=== PATIENT | male | born 1965 | race Caucasian/White ===

== ENCOUNTER 2023-04-05 17:02 | Emergency (ER) | payer BC, SELFPAY ==
[2023-04-05 17:19] VITALS: BP 121/67; PULSE 74; RESP 16; TEMP 37.1
--- NOTE | 2023-04-05 17:49 | ED.EAR ---
HPI - Ear Problem General Chief complaint: Ear Stated complaint: Left Ear Pain Time Seen by Provider: 04/05/23 17:50 Source: patient Mode of arrival: ambulatory Limitations: no limitations History of Present Illness HPI Narrative: 57-year-old male presented for complaint of left ear pressure for few days. Endorses decreased hearing. Denies tinnitus, dizziness, nausea, vomiting, fevers or chills. Uses Q-tips. No treatment prior to arrival. MD Complaint: ear pain Related Data Home Medications Medication Instructions Recorded Confirmed Cymbalta 04/05/23 albuterol sulfate 90 mcg/actuation inhalation 04/05/23 aerosol inhaler Allergies Allergy/AdvReac Type Severity Reaction Status Date / Time No Known Allergies Allergy Verified 04/05/23 17:18 Review of Systems Review of Systems: CONSTITUTIONAL: Denies malaise, chills, or fever. EYES: Denies visual changes, redness, or discharge. ENT: Denies sinus pain, and sore throat. Reports ear pain , rhinorrhea CARDIOVASCULAR: Denies chest pain, palpitations, or edema. RESPIRATORY: Denies cough or dyspnea. GASTROINTESTINAL: Denies abdominal pain, nausea, vomiting, diarrhea SKIN: Denies rash or itching. MUSCULOSKELETAL: Denies myalgia. NEUROLOGIC: Denies headache. All systems reviewed & are unremarkable except as noted in HPI and below PMFSH Comments At time of signature, agree with nursing past medical, surgical, social and family history. There is no relevant family history pertinent to the presenting complaint Exam Narrative: GENERAL: Well-appearing EYES: PERRLA, conjunctivae clear ENT: Nares clear. Mucous membranes moist. Right TM pearly inman with dull light reflex; left canal with small amount dried cerumen, TM erythematous, bulging and intact, canal mildly erythematous No drainage no tragal tenderness. Oropharynx not erythematous without lesions. CHEST: Clear to auscultation, breath sounds equal. HEART: Regular rate and rhythm. No murmur heard. SKIN: Warm, dry, no rash. NEURO: Alert and oriented x3. PSYCH: Normal mood and affect Course Course Emergency Course: Patient is aware of diagnosis, understands and agrees to treatment plan. Anticipatory guidance given. Patient agrees to follow-up as directed and is aware of reasons to seek care at the emergency department. Portions of this record may have been created with voice recognition software Level of Care: Express Care Visit Vital Signs Vital signs: Vital Signs Temperature 98.8 F 04/05/23 17:19 Pulse Rate 74 04/05/23 17:19 Respiratory Rate 16 04/05/23 17:19 Blood Pressure 121/67 04/05/23 17:19 Temperature 98.8 F 04/05/23 17:19 Pulse Rate 74 04/05/23 17:19 Respiratory Rate 16 04/05/23 17:19 Blood Pressure 121/67 04/05/23 17:19 Reviewed Procedures Ear Wax Removal Left Ear: Results: Re-examined: some cerumen remains Patient Tolerated Procedure: well and no complications Complications: no problems Technique: ear canal curetted Additional Comments: small amount of cerumen removed from the left canal, small amount cerumen remains. Medical Decision Making MDM Narrative Medical decision making narrative: discussed physical exam findings consistent with left AOM. Advised supportive measures and signs/symptoms to go to the ER. Patient is appropriate for outpatient treatment and follow-up. Differential Diagnosis Differential Diagnosis: Coronavirus, strep pharyngitis, allergic rhinitis, upper respiratory tract infection, sinusitis, rhinosinusitis, nasopharyngitis, viral pharyngitis, otitis media, otitis externa, eustachian tube dysfunction, foreign body, cerumen impaction. Vital Signs Vital Signs: Vital Signs Temperature 98.8 F 04/05/23 17:19 Pulse Rate 74 04/05/23 17:19 Respiratory Rate 16 04/05/23 17:19 Blood Pressure 121/67 04/05/23 17:19 Temperature 98.8 F 04/05/23 17:19 Pulse Rate 74 0
== END 2023-04-05 18:06 | disposition home or self-care (01) ==
PROVIDERS: Emergency Provider Nurse Practitioner Family; PCP Family Medicine
DX: H66.92 Otitis media, unspecified, left ear (principal); H61.22 Impacted cerumen, left ear; J44.9 Chronic obstructive pulmonary disease, unspecified
CPT/HCPCS: 69210; 99213; G0463

== ENCOUNTER 2023-10-15 18:46 | Emergency (ER) | payer BC, SELFPAY ==
[2023-10-15 18:50] VITALS: BP 139/76; PULSE 71; RESP 20; TEMP 37.1; O2SAT 100
--- NOTE | 2023-10-15 19:07 | ED.EAR ---
HPI - Ear Problem General Chief complaint: Ear Stated complaint: ears History of Present Illness HPI Narrative: Patient presents with right ear pain. No drainage from the ear Related Data Allergies Allergy/AdvReac Type Severity Reaction Status Date / Time No Known Allergies Allergy Verified 10/15/23 19:04 Review of Systems Review of Systems: CONSTITUTIONAL: Denies fever, chills, or sweats. EYES: Denies visual changes, redness, or discharge. ENT: Denies rhinorrhea, congestion, sore throat, or otalgia. CARDIOVASCULAR: Denies chest pain, palpitations, or edema. RESPIRATORY: Denies cough or dyspnea. GASTROINTESTINAL: Denies abdominal pain, nausea, vomiting, or diarrhea. GENITOURINARY: Denies dysuria or hematuria. SKIN: Denies rash or itching. MUSCULOSKELETAL: Denies back pain, joint pain, or myalgia. NEUROLOGIC: Denies headache, numbness, or weakness. PSYCHIATRIC: Denies anxiety or depression. PMFSH Comments At time of signature, agree with nursing past medical, surgical, social and family history. There is no relevant family history pertinent to the presenting complaint Exam Narrative: GENERAL: Well-appearing, well-nourished, and in no acute distress. HEAD: Normocephalic, atraumatic. EYES: PERRLA and EOMI. ENT: Nares clear, no rhinorrhea or epistaxis. Mucous membranes moist. Right ear moderate erythema to canal TM dull NECK: Supple. CHEST: Clear to auscultation. No respiratory distress. HEART: Regular rate and rhythm. No murmur heard. Normal peripheral pulses. ABDOMEN: Soft, nontender, nondistended, normal active bowel sounds. EXTREMITIES: Normal range of motion. No edema. SKIN: Warm, dry, no rash. NEURO: No focal deficits. Alert and oriented x3. [place] Coma Scale Eye Opening: Spontaneous 4 [place] Coma Scale Motor: Obeys Commands 6 [place] Coma Scale Verbal: Oriented 5 [place] Coma Scale Total 15 Course Course Level of Care: Express Care Visit Vital Signs Vital signs: Vital Signs Temperature 37.1 C 10/15/23 18:50 Pulse Rate 71 10/15/23 18:50 Respiratory Rate 10/15/23 18:50 Blood Pressure 139/76 10/15/23 18:50 Pulse Oximetry 100 10/15/23 18:50 Oxygen Delivery Room Air 10/15/23 18:50 Temperature 37.1 C 10/15/23 18:50 Pulse Rate 71 10/15/23 18:50 Respiratory Rate 20 10/15/23 18:50 Blood Pressure 139/76 10/15/23 18:50 Pulse Oximetry 100 10/15/23 18:50 Oxygen Delivery Room Air 10/15/23 18:50 Please ADONIS schedule a followup visit with your personal physician for further evaluation and treatment. Including recheck and discussion of your blood pressure. If your symptoms persist, change or worsen significantly before you can contact your personal physician then please, without delay, go to the emergency department for further evaluation Medical Decision Making Vital Signs Vital Signs: Vital Signs Temperature 37.1 C 10/15/23 18:50 Pulse Rate 71 10/15/23 18:50 Respiratory Rate 20 10/15/23 18:50 Blood Pressure 139/76 10/15/23 18:50 Pulse Oximetry 100 10/15/23 18:50 Oxygen Delivery Room Air 10/15/23 18:50 Temperature 37.1 C 10/15/23 18:50 Pulse Rate 71 10/15/23 18:50 Respiratory Rate 20 10/15/23 18:50 Blood Pressure 139/76 10/15/23 18:50 Pulse Oximetry 100 10/15/23 18:50 Oxygen Delivery Room Air 10/15/23 18:50 Discharge Plan Discharge Clinical Impression: Otitis media Patient Disposition: Home, Self-Care Condition: Stable Instructions: Antibiotic Form Additional Instructions: Medication as prescribed to with food until gone Tylenol and or ibuprofen as needed for pain or discomfort Follow-up with primary care provider as needed If any new or worsening symptoms please go to ER immediately further evaluation treatment Prescriptions: New amoxicillin-pot clavulanate 875-125 mg tablet 1 tablet PO Q12H 7 Days Qty: 14 0RF ciprofloxacin HCl 0.2 % dropperette 5 drp RIGHT EAR
== END 2023-10-15 19:12 | disposition home or self-care (01) ==
PROVIDERS: Emergency Provider Nurse Practitioner Family; PCP Family Medicine
DX: H66.91 Otitis media, unspecified, right ear (principal)
CPT/HCPCS: 99213; G0463

== ENCOUNTER 2024-06-20 17:14 | Emergency (ER) | payer BC, SELFPAY ==
--- OUTSIDE RECORDS SUMMARY | 2024-06-20 17:16 | XMS_ITS | Encounter Summary ---
Author Organization [facility] Healthcare Address [address] [place] [address] Care Team Providers Care Printer Repair Technician Name Role Phone Eduard Zamudio MD Primary Care Provider [phone] Encounter Details Date Type Department Care Team (Late Contact Info) Description 04/27/2024 Results Follow-Up [place] Director Of Content And Programming at [address] [id number] Isabel Rutherford MA Social History Tobacco Use Types Packs/Day Years Used Date Smoking Tobacco: Every Day Smokeless Tobacco: Never Personal Safety Answer Date Recorded Have you ever been in or are you currently in a harmful physical or emotional relationship or is someone making you feel afraid or unsafe? Denies 03/03/2024 Sex and Gender Information Value Date Recorded Sex Assigned at Not on file Legal Sex Male 3:24 PM CDT Gender Identity Not on file Sexual Orientation Not on file documented as of this encounter Plan of Treatment Not on file documented as of this encounter Visit Diagnoses Not on filedocumented in this encounter Care Teams Printer Repair Technician Relationship Specialty Start Date End Date Eduard Zamudio MD [address] [place] [address] [address] [facility] [address] [place] [address] PCP - General 08/05/21 documented as of this encounter
--- OUTSIDE RECORDS SUMMARY | 2024-06-20 17:16 | XMS_ITS | Referral Summary ---
Author Organization [facility] Address [address] [place] [id number] Care Team Providers Care Family Protection Specialist Name Role Phone Eduard Zamudio MD Primary Care Provider [phone] Encounters Date Type Department Care Team Description 04/27/2024 Results Follow-Up [facility] at [address] [id number] Isabel Rutherford MA 04/03/2024 6:33 AM MECHANICAL MAINTENANCE TECHNICIAN - 04/03/2024 11:59 PM MECHANICAL MAINTENANCE TECHNICIAN Hospital Encounter [facility] Cardiology [address] [place] [id number] Paroxysmal SVT (supraventricular tachycardia) Discharge Disposition: Discharge to home or self care 04/03/2024 6:33 AM MECHANICAL MAINTENANCE TECHNICIAN - 04/03/2024 11:59 PM MECHANICAL MAINTENANCE TECHNICIAN Hospital Encounter [facility] Cardiology [address] [place] [id number] Paroxysmal SVT (supraventricular tachycardia) Discharge Disposition: Discharge to home or self care 03/27/2024 6:32 AM MECHANICAL MAINTENANCE TECHNICIAN - 03/27/2024 11:59 PM MECHANICAL MAINTENANCE TECHNICIAN Hospital Encounter [facility] [address] [place] [phone] Discharge Disposition: Discharge to home or self care 03/27/2024 6:32 AM MECHANICAL MAINTENANCE TECHNICIAN - 03/27/2024 11:59 PM MECHANICAL MAINTENANCE TECHNICIAN Hospital Encounter [facility] Cardiology [address] [place] [phone] Paroxysmal SVT (supraventricular tachycardia) Discharge Disposition: Discharge to home or self care 03/27/2024 6:32 AM MECHANICAL MAINTENANCE TECHNICIAN - 03/27/2024 11:59 PM MECHANICAL MAINTENANCE TECHNICIAN Hospital Encounter [facility] [address] [place] [address] Discharge Disposition: Discharge to home or self care 03/27/2024 6:32 AM MECHANICAL MAINTENANCE TECHNICIAN - 03/27/2024 11:59 PM MECHANICAL MAINTENANCE TECHNICIAN Hospital Encounter [address] [address] Paroxysmal SVT (supraventricular tachycardia) Discharge Disposition: Discharge to home or self care from Last 3 Months Allergies Active Allergy Reactions Criticality Noted Date Comments Iodine Anaphylaxis High 03/03/2024 Shellfish Containing Products Anaphylaxis High 03/03 Medications albuterol HFA (PROVENTIL HFA,VENTOLIN HFA,PROAIR HFA) 90 mcg/actuation inhaler INHALE 1 TO 2 PUFFS BY MOUTH EVERY 4 HOURS NEEDED FOR SHORTNESS OF BREATH 2 Active Symbicort 160-4.5 mcg/actuation inhaler Inhale 2 puffs 2 (two) times a day 2 Active ergocalciferol (VITAMIN D) 50,000 unit capsule Take 1 capsule (50,000 Units total) by mouth 2 Active meloxicam (MOBIC) 15 mg tablet TAKE 1 TABLET BY MOUTH EVERY DAY WITH MEALS 2 Active methylPREDNISol one (MEDROL DOSEPACK) 4 mg Dosepack 2 Active meclizine (ANTIVERT) 25 mg tabletIndicatio ns:Vertigo Take 2 tablets (50 mg total) by mouth 3 (three) times a day as needed for dizziness 30 tablet 2 Active dilTIAZem XR (CARDIZEM CD,DILACOR XR) 180 mg 24 hr capsule Take 1 capsule (180 mg total) by mouth daily 30 capsule 11 5 03/06/19 26 Active Active Problems No known active problems Immunizations Immunization Administration Dates Next Due Influenza, Quadrivalent, Spl it, Preservative Free, Intramuscular 11/23/2019 Influenza, Trivalent, IM (MDV) 11/30/2020 Social History Tobacco Use Types Packs/Day Years Used Date Smoking Tobacco: Every Day Smokeless Tobacco: Never Tobacco Cessation:Ready to Q uit: Not Asked; Counseling Given: Not Answered Personal Safety Answer Date Recorded Have you ever been in or are you currently in a harmful physical or emotional relationship or is someone making you feel afraid or unsafe? Denies 03/03/2024 Sex and Gender Information Value Date Recorded Sex Assigned at Not on file Legal Sex Male 3:24 PM CDT Gender Identity Not on file Sexual Orientation Not on file Last Filed Vital Signs Vital Sign Reading Time Taken Comments Blood Pressure 137/90 03/06/2024 11:55 AM MECHANICAL MAINTENANCE TECHNICIAN Pulse 76 03/06/2024 11:55 AM MECHANICAL MAINTENANCE TECHNICIAN Temperature 36.3 C (97.4 F) 03/03/2024 6:34 PM MECHANICAL MAINTENANCE TECHNICIAN Respiratory Rate 17 03/03/2024 6:50 PM MECHANICAL MAINTENANCE TECHNICIAN Oxygen Saturation 97% 03/03/2024 6:50 PM MECHANICAL MAINTENANCE TECHNICIAN Inhaled Oxygen Concentration - - Weight 113.4 kg (250 lb) 04/03/2024 7:06 AM MECHANICAL MAINTENANCE TECHNICIAN Height 180.3 cm (5' 11 ) 04/03/2024 7:06 AM MECHANICAL MAINTENANCE TECHNICIAN Body Mass Index 34.87 04/03/2024 7:06 AM MECHANICAL MAINTENANCE TECHNICIAN Plan of Treatment Not on file Procedures Procedure Name Priority Date/Time Associated Diagnosis Comments TRANSTHORACIC ECHO (TTE) COMPLETE W DOPPLER/CF WO CONTRAST Routine 04/03/2024 7:26 AM MECHANICAL MAINTENANCE TECHNICIAN Paroxysmal SVT (supraventricular tachycardia) MCT - MOBILE CARDIAC TELEMETRY EVENT MONITOR Routine 04/03/2024 6:34 AM MECHANICAL MAINTENANCE TECHNICIAN Paroxysmal SVT (supraventricular tachycardia) STRESS TEST FOR DUAL READ Schedule Routine, Read Routine (OP Routine) 03/27/2024 9:01 AM MECHANICAL MAINTENANCE TECHNICIAN Paroxysmal SVT (supraventricular tachycardia) NM MPI SPECT (REST AND/OR STRESS) MULTIPLE STUDIES Schedule Routine, Read Routine (OP Routine) 03/27/2024 9:01 AM MECHANICAL MAINTENANCE TECHNICIAN Paroxysmal SVT (supraventricular tachycardia) from Last 3 Months Results * TRANSTHORACIC ECHO (TTE) COMPLETE W DOPPLER/CF WO CONTRAST (04/03/2024 7:26 AM MECHANICAL MAINTENANCE TECHNICIAN) LV EF % CONS SCIMAGE Anatomical Region Laterality Modality Ultrasound 04/03/2024 7:10 AM MECHANICAL MAINTENANCE TECHNICIAN Narrative 04/03/2024 8:11 AM MECHANICAL MAINTENANCE TECHNICIAN [address] [place] [address] Echocardiogram Report Patient Name: MALCOLM LILLY : 1965 Study Date: 04/03/2024 7:10:03 AM Gender: M Tech: S[employer] WORKER [employer] ESC[employer] Location: Echo Lab 2 Ref Provider: KATIA NUNEZ Height(Cm): 180 BSA: 2.38 Weight(Kg): 113.4 Quality: Adequate Order Provider: KATIA NUNEZ PROCEDURES: Echocardiographic Report: Transthoracic echocardiogram with complete 2D, M-Mode, and color Doppler examination. INDICATIONS: Atrial Fibrillation and I47.10 Supraventricular tachycardia, unspecified. MEASUREMENTS: 2D/MM Value Range Doppler Value Range EF Teich MM 71.0 % [ 52.0 - 72.0 ] MARCELA Vmax 3.06 cm2 EF Mod BP 71 % [ 52 - 72 ] AV Mean PG 4 mmHg LVIDd MM 4.40 cm [ 4.20 - 5.80 ] AV Peak Ted 1.31 m/s [ 1.00 - 1.70 ] LVIDs MM 2.70 cm [ 2.50 - 4.00 ] AV VTI 28.21 cm LVPWd MM 1.20 cm [ 0.60 - 1.00 ] LVOT Diam 2.31 cm IVSd MM 1.20 cm [ 0.60 - 1.00 ] LVOT Peak Ted 0.95 m/s [ 0.70 - 1.10 ] LA Dimension MM 3.10 cm [ 3.00 - 4.00 ] LVOT VTI 22.37 cm AoR Diam MM 2.85 cm [ 3.10 - 3.70 ] MV E Peak Ted 0.89 m/s [ 0.60 - 1.30 ] ACS MM 1.84 cm [ 1.50 - 2.60 ] MV A Peak Ted 0.80 m/s [ 1.00 - 1.20 ] MV Mean PG 2 mmHg MV PHT 41 msec [ 20 - 100 ] MVA 5.40 MV Decel Time 175 msec [ 104 - 258 ] TR Peak Ted 2.29 m/s [ 1.00 - 2.80 ] TR Peak PG 21 mmHg RVSP 26.00 mmHg [ 10.00 - 36.00 ] E` 0.07 m/s E/E` 12.05 [ <= 10.00 ] PA Pressure 26.00 mmHg [ 10.00 - 36.00 ] 2D/MM Value Range Doppler Value Range - FINDINGS: Atrial Septum: Normal atrial septum. Left Ventricle: Impaired diastolic relaxation Grade I. Ejection fraction is measured at 71 %. Left Atrium: The left atrium is normal in size. Right Ventricle: Normal right ventricular size. Normal right ventricular systolic function. Right Atrium: The right atrium is normal in size. Aortic Valve: Normal structure of the aortic valve. Mitral Valve: Normal structure of the mitral valve. Pulmonic Valve: Normal structure of the pulmonic valve. Tricuspid Valve: Estimated peak RVSP is 26 mmHg. Mild tricuspid regurgitation. Pericardium: Normal pericardium with no significant pericardial effusion. Aorta: Normal aortic root. Sinus of Valsalva is normal. Aortic arch is normal. Descending aorta is normal. IVC: Normal size and normal respiratory collapse consistent with normal right atrial pressure (<5 mmHg). Pulmonary Artery: Normal pulmonary artery size. CONCLUSIONS: Impaired diastolic relaxation Grade I. Ejection fraction is measured at 71 %. Estimated peak RVSP is 26 mmHg. Mild tricuspid regurgitation. Electronically Signed By: Livan Farrell MD 04/03/2024 8:10:53 AM MECHANICAL MAINTENANCE TECHNICIAN Procedure Note Alyce Farrell MD - 04/03/[address] [place] [address] Echocardiogram Report Patient Name: MALCOLM LILLY : 1965 Study Date: 04/03/2024 7:10:03 AM Gender: M Tech: KERLINE Location: Echo Lab 2 Ref Provider: KATIA NUNEZ Height(Cm): 180 BSA: 2.38 Weight(Kg): 113.4 Quality: Adequate Order Provider: KATIA NUNEZ PROCEDURES: Echocardiographic Report: Transthoracic echocardiogram with complete 2D, M-Mode, and color Dopplerexamination. INDICATIONS: Atrial Fibrillation and I47.10 Supraventricular tachycardia,unspecified. MEASUREMENTS: 2D/MM Value Range Doppler ValueRange EF Teich MM 71.0 % [ 52.0 - 72.0 ] MARCELA Vmax 3.06cm2 EF Mod BP 71 % [ 52 - 72 ] AV Mean PG 4 mmHg LVIDd MM 4.40 cm [ 4.20 - 5.80 ] AV Peak Ted 1.31 m/s[ 1.00 - 1.70 ] LVIDs MM 2.70 cm [ 2.50 - 4.00 ] AV VTI 28.21cm LVPWd MM 1.20 cm [ 0.60 - 1.00 ] LVOT Diam 2.31cm IVSd MM 1.20 cm [ 0.60 - 1.00 ] LVOT Peak Ted 0.95 m/s[ 0.70 - 1.10 ] LA Dimension MM 3.10 cm [ 3.00 - 4.00 ] LVOT VTI 22.37cm AoR Diam MM 2.85 cm [ 3.10 - 3.70 ] MV E Peak Ted 0.89 m/s[ 0.60 - 1.30 ] ACS MM 1.84 cm [ 1.50 - 2.60 ] MV A Peak Ted 0.80 m/s[ 1.00 - 1.20 ] MV Mean PG 2 mmHg MV PHT 41 msec [ 20 - 100 ] MVA 5.40 MV Decel Time 175 msec [ 104 - 258 ] TR Peak Ted 2.29 m/s [ 1.00 - 2.80 ] TR Peak PG 21 mmHg RVSP 26.00 mmHg [ 10.00 - 36.00 ] E` 0.07 m/s E/E` 12.05 [ <= 10.00 ] PA Pressure 26.00 mmHg [ 10.00 - 36.00 ] 2D/MM Value Range Doppler ValueRange - FINDINGS: Atrial Septum: Normal atrial septum. Left Ventricle: Impaired diastolic relaxation Grade I. Ejection fraction is measured at 71%. Left Atrium: The left atrium is normal in size. Right Ventricle: Normal right ventricular size. Normal right ventricular systolicfunction. Right Atrium: The right atrium is normal in size. Aortic Valve: Normal structure of the aortic valve. Mitral Valve: Normal structure of the mitral valve. Pulmonic Valve: Normal structure of the pulmonic valve. Tricuspid Valve: Estimated peak RVSP is 26 mmHg. Mild tricuspid regurgitation. Pericardium: Normal pericardium with no significant pericardial effusion. Aorta: Normal aortic root. Sinus of Valsalva is normal. Aortic arch is normal.Descending aorta is normal. IVC: Normal size and normal respiratory collapse consistent with normal rightatrial pressure (<5 mmHg). Pulmonary Artery: Normal pulmonary artery size. CONCLUSIONS: Impaired diastolic relaxation Grade I. Ejection fraction is measured at 71%. Estimated peak RVSP is 26 mmHg. Mild tricuspid regurgitation. Electronically Signed By: Livan Farrell MD 04/03/2024 8:10:53 AM MECHANICAL MAINTENANCE TECHNICIAN Katia Nunez MD CV ECHO PROCEDURES Final R esult * MCT Mobile Cardiac Telemetry Event Monitor (04/03/2024 6:34 AM MECHANICAL MAINTENANCE TECHNICIAN) Anatomical Region Laterality Modality Electrocardiogra phy 04/23/2024 11:5 9 PM MECHANICAL MAINTENANCE TECHNICIAN Narrative 04/27/2024 12:38 PM MECHANICAL MAINTENANCE TECHNICIAN [address] [address] EVENT MONITOR Patient Name: MALCOLM LILLY : 1965 Study Date: 04/23/2024 11:59:00 PM Gender: M Tech: Ref Provider: KATIA NUNEZ Height(Cm): BSA: Weight(Kg): Order Provider: KATIA NUNEZ PROCEDURES: Event Report: Event Monitor Report. INDICATIONS: I47.10 Supraventricular tachycardia, unspecified. FINDINGS: CONCLUSIONS: 1. Predominant rhythm is normal sinus rhythm with a minimum heart rate of 53 beats per minute in sinus and a maximum heart rate of 155 beats per minute in a short run of symptomatic SVT as will be described below. Average heart rate of 77 beats per minute Total monitoring time 19 days 5 hours 44 minutes. 2. Heart rate and rate variability is appropriate. 3. No prolonged pauses. 4. Rare PACs with 928 PACs corresponding to less than 1% of total beats. 5. Rare PVCs with 262 PVCs corresponding to less than 1% of total beats. 6. There were 5 patient activated events with 2 of them associated with fluttering/skipped beats. Those 2 episodes with fluttering/skipped beats could indeed be the same episode. It was associated with a short run of SVT lasting 6 beats at 155 beats per minute. Electronically Signed By: Dr Tito Trejo 04/27/2024 12:15:54 PM MECHANICAL MAINTENANCE TECHNICIAN Procedure Note Tito Trejo MD - 04/27/[address] [place] [address] EVENT MONITOR Patient Name: MALCOLM LILLY : 1965 Study Date: 04/23/2024 11:59:00 PM Gender: M Tech: Ref Provider: KATIA NUNEZ Height(Cm): BSA: Weight(Kg): Order Provider: KATIA NUNEZ PROCEDURES: Event Report: Event Monitor Report. INDICATIONS: I47.10 Supraventricular tachycardia, unspecified. FINDINGS: CONCLUSIONS: 1. Predominant rhythm is normal sinus rhythm with a minimum heart rate of53 beats per minute in sinus and a maximum heart rate of 155 beats per minute in ashort run of symptomatic SVT as will be described below. Average heart rate of 77 beats per minute Total monitoring time 19 days 5 hours 44 minutes. 2. Heart rate and rate variability is appropriate. 3. No prolonged pauses. 4. Rare PACs with 928 PACs corresponding to less than 1% of total beats. 5. Rare PVCs with 262 PVCs corresponding to less than 1% of total beats. 6. There were 5 patient activated events with 2 of them associated with fluttering/skipped beats. Those 2 episodes with fluttering/skipped beats could indeed be the sameepisode. It was associated with a short run of SVT lasting 6 beats at 155 beats perminute. Electronically Signed By: Dr Tito Trejo 04/27/2024 12:15:54 PM MECHANICAL MAINTENANCE TECHNICIAN Katia Nunez MD CV CARDIAC SERVICES PROCED URES Final Result * NM MPI SPECT (Rest and/or Stress) Multiple Studies (03/27/2024 9:01 AM MECHANICAL MAINTENANCE TECHNICIAN) LV EF % CONS SCIMAGE Anatomical Region Laterality Modality Body N/A Nuclear Medicine 03/27/2024 6:29 AM MECHANICAL MAINTENANCE TECHNICIAN Narrative 03/27/2024 11:43 AM MECHANICAL MAINTENANCE TECHNICIAN [address] [place] [address] MPI Report Patient Name: MALCOLM LILLY : 1965 Study Date: 03/27/2024 6:29:58 AM Gender: M Tech: Ref Provider: KATIA NUNEZ Height(Cm): BSA: Weight(Kg): Order Provider: KATIA NUNEZ - PROCEDURES: Exercise SPECT Report.: Myocardial Perfusion Imaging at rest and post exercise. INDICATIONS: I47.10 Supraventricular tachycardia, unspecified. FINDINGS: Procedure Data: Sestamibi injected at rest was 10.5 millicuries Sestamibi injected at peak exercise was 32.2 millicuries Peak HR: 147 bpm Predicted Maximal HR 160 bpm Percent Max Predicted HR Achieved: 91.88 % Perfusion: Normal perfusion imaging. LV Function: Left ventricular ejection fraction is 63 %. CONCLUSIONS: 1. Myocardial Perfusion: Normal rest and stress images. 2. Left ventricle: Normal size and systolic function (visually confirmed EF >50%). Electronically Signed By: Katia Nunez MD 03/27/2024 11:41:56 AM MECHANICAL MAINTENANCE TECHNICIAN Procedure Note Katia Nunez MD - 03/27/[address] [address] MPI Report Patient Name: MALCOLM LILLY : 1965 Study Date: 03/27/2024 6:29:58 AM Gender: M Tech: Ref Provider: KATIA NUNEZ Height(Cm): BSA: Weight(Kg): Order Provider: KATIA NUNEZ - PROCEDURES: Exercise SPECT Report.: Myocardial Perfusion Imaging at rest and post exercise. INDICATIONS: I47.10 Supraventricular tachycardia, unspecified. FINDINGS: Procedure Data: Sestamibi injected at rest was 10.5 millicuries Sestamibi injected at peak exercise was 32.2 millicuries Peak HR: 147 bpm Predicted Maximal HR 160 bpm Percent Max Predicted HR Achieved: 91.88 % Perfusion: Normal perfusion imaging. LV Function: Left ventricular ejection fraction is 63 %. CONCLUSIONS: 1. Myocardial Perfusion: Normal rest and stress images. 2. Left ventricle: Normal size and systolic function (visually confirmedEF >50%). Electronically Signed By: Katia Nunez MD 03/27/2024 11:41:56 AM MECHANICAL MAINTENANCE TECHNICIAN Katia Nunez MD [facility] PROCEDURES Final Re sult * Stress Test for Myocardial Perfusion (03/27/2024 9:01 AM MECHANICAL MAINTENANCE TECHNICIAN) LV EF % CONS SCIMAGE Anatomical Region Laterality Modality Nuclear Medicine 03/27/2024 7:45 AM MECHANICAL MAINTENANCE TECHNICIAN Narrative 03/27/2024 9:19 AM MECHANICAL MAINTENANCE TECHNICIAN [address] [address] [employer] Report Patient Name: MALCOLM LILLY : 1965 Study Date: 03/27/2024 7:45:00 AM Gender: M Tech: jkh Ref Provider: KATIA NUNEZ Height(Cm): 180 BSA: 3.5 Weight(Kg): 245 Heart Rate: 136 Order Provider: KATIA NUNEZ PROCEDURES: Pharmacologic SPECT Report.: Myocardial perfusion imaging with Sestamibi SPECT at rest and post regadenoson (Lexiscan) infusion. INDICATIONS: I47.10 Supraventricular tachycardia, unspecified. FINDINGS: Procedure Data: Resting HR 72 bpm Peak HR: 147 bpm Predicted Maximal HR 160 bpm Target HR: 136 bpm Percent Max Predicted HR Achieved: 91.88 % Baseline BP: 115/77 mmHg Peak BP: 156/80 mmHg Exercise Time: 06:16 Performed By: Denise Eng. Supervising Physician: The Supervising Physician is tito trejo. Reason for Termination: Lexiscan protocol complete. Resting ECG: Normal sinus rhythm at 74 beats per minute, normal axis, poor R-wave progression. Post Pharm ECG: No diagnostic ST changes. Arrhythmia: No arrhythmias seen. Cardiac Symptoms With Stress: Symptoms with stress were None. Exam Interpreted: Read by . CONCLUSIONS: 1. Negative Lexiscan pharmacologic stress test for chest pain or EKG changes. 2. Nuclear images are pending and they will be reported separately. Electronically Signed By: Dr Tito Trejo 03/27/2024 9:18:46 AM MECHANICAL MAINTENANCE TECHNICIAN Procedure Note Tito Trejo MD - 03/27/[address] [address] [employer] Report Patient Name: MALCOLM LILLY : 1965 Study Date: 03/27/2024 7:45:00 AM Gender: M Tech: jkh Ref Provider: KATIA NUNEZ Height(Cm): 180 BSA: 3.5 Weight(Kg): 245 Heart Rate: 136 Order Provider: KATIA NUNEZ PROCEDURES: Pharmacologic SPECT Report.: Myocardial perfusion imaging with Sestamibi SPECT at rest and postregadenoson (Lexiscan) infusion. INDICATIONS: I47.10 Supraventricular tachycardia, unspecified. FINDINGS: Procedure Data: Resting HR 72 bpm Peak HR: 147 bpm Predicted Maximal HR 160 bpm Target HR: 136 bpm Percent Max Predicted HR Achieved: 91.88 % Baseline BP: 115/77 mmHg Peak BP: 156/80 mmHg Exercise Time: 06:16 Performed By: Denise Eng. Supervising Physician: The Supervising Physician is tito trejo. Reason for Termination: Lexiscan protocol complete. Resting ECG: Normal sinus rhythm at 74 beats per minute, normal axis, poor R-waveprogression. Post Pharm ECG: No diagnostic ST changes. Arrhythmia: No arrhythmias seen. Cardiac Symptoms With Stress: Symptoms with stress were None. Exam Interpreted: Read by . CONCLUSIONS: 1. Negative Lexiscan pharmacologic stress test for chest pain or EKGchanges. 2. Nuclear images are pending and they will be reported separately. Electronically Signed By: Dr Tito Trejo 03/27/2024 9:18:46 AM MECHANICAL MAINTENANCE TECHNICIAN Katia Nunez MD CV STRESS PROCEDURES Final Result from Last 3 Months Insurance COMMERCIAL GENERIC Member Subscriber Plan / Payer (Ef fective 2019-Present) Name:Malcolm Lilly Relation to Subscriber:Self Name:Malcolm Lilly Payer ID:[id number] Group ID:[id number] Type:COMMERCIAL Address: [address] [address] COMMERCIAL GENERIC Member Subscriber Plan / Payer (Ef fective 2021-Present) Name:Malcolm Lilly Relation to Subscriber:Self Name:Malcolm Lilly Payer ID:[id number] Group ID:[id number] Type:COMMERCIAL Address: [address] [place] [address] COMMERCIAL GENERIC Member Subscriber Plan / Payer (Ef fective 2021-Present) Name:Malcolm Lilly Relation to Subscriber:Self Name:Malcolm Lilly Payer ID:[id number] Group ID:[id number] Type:COMMERCIAL Address: [address] [place] [address] [facility] ACCESS CHOICE Care Teams Family Protection Specialist Relationship Specialty Start Date End Date Eduard Zamudio MD [address] [facility] [address] [place] [address] [address] PCP - General 08/05/21
--- OUTSIDE RECORDS SUMMARY | 2024-06-20 17:16 | XMS_ITS | Clinical Summary ---
Author Organization [facility] at the [facility] Address [address] [place], [place] [id number] Care Team Providers Care Benefits Analyst Name Role Phone Eduard Zamudio MD Primary Care Provider [phone] Allergies Active Allergy Reactions Criticality Noted Date [...] Active Active Problems No known active problems Encounters Date Type Department Care Team Description 04/27/2024 Results Follow-Up [place] [employer] [employer] Person at [address] [id number] Isabel Rutherford MA 04/03/2024 6:33 AM MUSIC SOUND LIGHT TECHNICIAN - 04/03/2024 11:59 PM MUSIC SOUND LIGHT TECHNICIAN Hospital Encounter [facility] [address] [place] [id number] Paroxysmal SVT (supraventricular tachycardia) Discharge Disposition: Discharge to home or self care 04/03/2024 6:33 AM MUSIC SOUND LIGHT TECHNICIAN - 04/03/2024 11:59 PM MUSIC SOUND LIGHT TECHNICIAN Hospital Encounter [facility] [address] [place] [phone] Paroxysmal SVT (supraventricular tachycardia) Discharge Disposition: Discharge to home or self care 03/27/2024 6:32 AM MUSIC SOUND LIGHT TECHNICIAN - 03/27/2024 11:59 PM MUSIC SOUND LIGHT TECHNICIAN Hospital Encounter [address] [address] Discharge Disposition: Discharge to home or self care 03/27/2024 6:32 AM MUSIC SOUND LIGHT TECHNICIAN - 03/27/2024 11:59 PM MUSIC SOUND LIGHT TECHNICIAN Hospital Encounter [facility] [address] [place] [phone] Paroxysmal SVT (supraventricular tachycardia) Discharge Disposition: Discharge to home or self care 03/27/2024 6:32 AM MUSIC SOUND LIGHT TECHNICIAN - 03/27/2024 11:59 PM MUSIC SOUND LIGHT TECHNICIAN Hospital Encounter [address] [address] Discharge Disposition: Discharge to home or self care 03/27/2024 6:32 AM MUSIC SOUND LIGHT TECHNICIAN - 03/27/2024 11:59 PM MUSIC SOUND LIGHT TECHNICIAN Hospital Encounter [address] [address] Paroxysmal SVT (supraventricular tachycardia) Discharge Disposition: Discharge to home or self care from Last 3 Months Immunizations Immunization Administration Dates Next Due Influenza, Quadrivalent, Spl it, Preservative Free, Intramuscular 11/23/2019 Influenza, Trivalent, IM (MDV) 11/30/2020 Surgical History Surgery Date Site/Laterality Comments APPENDECTOMY ANKLE SURGERY Left cartilage repair Medical History Medical History Date Comments Asthma COPD (chronic obstructive pulmonary disease) (HC C) Social History Tobacco Use Types Packs/Day Years [...] on file Sexual Orientation Not on file Obstetrics History Last Filed Vital Signs Vital Sign Reading Time Taken Comments Blood Pressure 137/90 03/06/2024 11:55 AM MUSIC SOUND LIGHT TECHNICIAN Pulse 76 03/06/2024 11:55 AM MUSIC SOUND LIGHT TECHNICIAN Temperature 36.3 C (97.4 F) 03/03/2024 6:34 PM MUSIC SOUND LIGHT TECHNICIAN Respiratory Rate 17 03/03/2024 6:50 PM MUSIC SOUND LIGHT TECHNICIAN Oxygen Saturation 97% 03/03/2024 6:50 PM MUSIC SOUND LIGHT TECHNICIAN Inhaled Oxygen Concentration - - Weight 113.4 kg (250 lb) 04/03/2024 7:06 AM MUSIC SOUND LIGHT TECHNICIAN Height 180.3 cm (5' 11 ) 04/03/2024 7:06 AM MUSIC SOUND LIGHT TECHNICIAN Body Mass Index 34.87 04/03/2024 7:06 AM MUSIC SOUND LIGHT TECHNICIAN Plan of Treatment Health Maintenance Due Date Last Done Comments Colon Cancer Screening-Colonoscopy 1965 Depression Screening 1965 Hepatitis C Screening 1965 Prostate Cancer Screening-PSA 1965 DTaP/Tdap/Td Vaccine (1 - Tdap) 09/13/1974 Hepatitis B Screening 09/13/1981 Regular Well Visit/Exam 18-64 09/13/1981 Pneumococcal vaccine <65 (1 of 2 - PCV) 09/13/1982 Zoster Vaccine (1 of 2) 09/13/2013 Covid-19 Vaccine (2023-2 5 season) 2023 02/02/2021, 06/19/2020, 05/26/2020 Influenza Vaccine Completed 12/25/2023, , 11/16/2021, Additional history exists Procedures Procedure Name Priority Date/Time Associated Diagnosis Comments TRANSTHORACIC ECHO (TTE) COMPLETE W DOPPLER/CF WO CONTRAST Routine 04/03/2024 7:26 AM MUSIC SOUND LIGHT TECHNICIAN Paroxysmal SVT (supraventricular tachycardia) MCT - MOBILE CARDIAC TELEMETRY EVENT MONITOR Routine 04/03/2024 6:34 AM MUSIC SOUND LIGHT TECHNICIAN Paroxysmal SVT (supraventricular tachycardia) STRESS TEST FOR DUAL READ Schedule Routine, Read Routine (OP Routine) 03/27/2024 9:01 AM MUSIC SOUND LIGHT TECHNICIAN Paroxysmal SVT (supraventricular tachycardia) NM MPI SPECT (REST AND/OR STRESS) MULTIPLE STUDIES Schedule Routine, Read Routine (OP Routine) 03/27/2024 9:01 AM MUSIC SOUND LIGHT TECHNICIAN Paroxysmal SVT (supraventricular tachycardia) from Last 3 Months Results * TRANSTHORACIC ECHO (TTE) COMPLETE W DOPPLER/CF WO CONTRAST (04/03/2024 7:26 AM MUSIC SOUND LIGHT TECHNICIAN) LV EF % CONS SCIMAGE Anatomical Region Laterality Modality Ultrasound 04/03/2024 7:10 AM MUSIC SOUND LIGHT TECHNICIAN Narrative 04/03/2024 8:11 AM MUSIC SOUND LIGHT TECHNICIAN [address] [address] Echocardiogram Report Patient Name: PARDEEP LILLY : 1965 Study Date: 04/03/2024 7:10:03 AM Gender: M 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 Location: Echo Lab 2 Ref Provider: SANDY NUNEZ Height(Cm): 180 BSA: 2.38 Weight(Kg): 113.4 Quality: Adequate Order Provider: SANDY NUNEZ PROCEDURES: Echocardiographic Report: Transthoracic echocardiogram with [...] By: Livan Farrell MD 04/03/2024 8:10:53 AM MUSIC SOUND LIGHT TECHNICIAN Procedure Note Alyce Farrell MD - 04/03/[address] [address] Echocardiogram Report Patient Name: PARDEEP LILLY : 1965 Study Date: 04/03/2024 7:10:03 AM Gender: M 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 Location: Echo Lab 2 Ref Provider: SANDY NUNEZ Height(Cm): 180 BSA: 2.38 Weight(Kg): 113.4 Quality: Adequate Order Provider: SANDY NUNEZ PROCEDURES: Echocardiographic Report: Transthoracic echocardiogram with [...] By: Livan Farrell MD 04/03/2024 8:10:53 AM MUSIC SOUND LIGHT TECHNICIAN Sandy Nunez MD CV ECHO PROCEDURES Final R esult * MCT Mobile Cardiac Telemetry Event Monitor (04/03/2024 6:34 AM MUSIC SOUND LIGHT TECHNICIAN) Anatomical Region Laterality Modality Electrocardiogra phy 04/23/2024 11:5 9 PM MUSIC SOUND LIGHT TECHNICIAN Narrative 04/27/2024 12:38 PM MUSIC SOUND LIGHT TECHNICIAN [address] [address] EVENT MONITOR Patient Name: PARDEEP LILLY : 1965 Study Date: 04/23/2024 11:59:00 PM Gender: M Tech: Ref Provider: SANDY NUNEZ Height(Cm): BSA: Weight(Kg): Order Provider: SANDY NUNEZ PROCEDURES: Event Report: Event Monitor Report. [...] By: Dr Tito Trejo 04/27/2024 12:15:54 PM MUSIC SOUND LIGHT TECHNICIAN Procedure Note Tito Trejo MD - 04/27/[address] [address] EVENT MONITOR Patient Name: PARDEEP LILLY : 1965 Study Date: 04/23/2024 11:59:00 PM Gender: M Tech: Ref Provider: SANDY NUNEZ Height(Cm): BSA: Weight(Kg): Order Provider: SANDY NUNEZ PROCEDURES: Event Report: Event Monitor Report. [...] By: Dr Tito Trejo 04/27/2024 12:15:54 PM MUSIC SOUND LIGHT TECHNICIAN us Sandy Nunez MD CV CARDIAC SERVICES PROCED URES Final Result * NM MPI SPECT (Rest and/or Stress) Multiple Studies (03/27/2024 9:01 AM MUSIC SOUND LIGHT TECHNICIAN) LV EF % CONS SCIMAGE Anatomical Region Laterality Modality Body N/A Nuclear Medicine 03/27/2024 6:29 AM MUSIC SOUND LIGHT TECHNICIAN Narrative 03/27/2024 11:43 AM MUSIC SOUND LIGHT TECHNICIAN [address] [place] [address] MPI Report Patient Name: PARDEEP LILLY : 1965 Study Date: 03/27/2024 6:29:58 AM Gender: M Tech: Ref Provider: SANDY NUNEZ Height(Cm): BSA: Weight(Kg): Order Provider: SANDY NUNEZ - PROCEDURES: Exercise SPECT Report.: Myocardial [...] (visually confirmed EF >50%). Electronically Signed By: Sandy Nunez MD 03/27/2024 11:41:56 AM MUSIC SOUND LIGHT TECHNICIAN Procedure Note Sandy Nunez MD - 03/27/[address] [address] MPI Report Patient Name: PARDEEP LILLY : 1965 Study Date: 03/27/2024 6:29:58 AM Gender: M Tech: Ref Provider: SANDY NUNEZ Height(Cm): BSA: Weight(Kg): Order Provider: SANDY NUNEZ - PROCEDURES: Exercise SPECT Report.: Myocardial [...] function (visually confirmedEF >50%). Electronically Signed By: Sandy Nunez MD 03/27/2024 11:41:56 AM MUSIC SOUND LIGHT TECHNICIAN us Sandy Nunez MD [facility] PROCEDURES Final Re sult * Stress Test for Myocardial Perfusion (03/27/2024 9:01 AM MUSIC SOUND LIGHT TECHNICIAN) LV EF % CONS SCIMAGE Anatomical Region Laterality Modality Nuclear Medicine 03/27/2024 7:45 AM MUSIC SOUND LIGHT TECHNICIAN Narrative 03/27/2024 9:19 AM MUSIC SOUND LIGHT TECHNICIAN [address] [place] [address] [employer] Report Patient Name: PARDEEP LILLY : 1965 Study Date: 03/27/2024 7:45:00 AM Gender: M Tech: jkh Ref Provider: SANDY NUNEZ Height(Cm): 180 BSA: 3.5 Weight(Kg): 245 Heart Rate: 136 Order Provider: SANDY NUNEZ PROCEDURES: Pharmacologic SPECT Report.: Myocardial perfusion [...] By: Dr Tito Trejo 03/27/2024 9:18:46 AM MUSIC SOUND LIGHT TECHNICIAN Procedure Note Tito Trejo MD - 03/27/[address] [place] [address] [employer] Report Patient Name: PARDEEP LILLY : 1965 Study Date: 03/27/2024 7:45:00 AM Gender: M Tech: jkh Ref Provider: SANDY NUNEZ Height(Cm): 180 BSA: 3.5 Weight(Kg): 245 Heart Rate: 136 Order Provider: SANDY NUNEZ PROCEDURES: Pharmacologic SPECT Report.: Myocardial perfusion [...] By: Dr Tito Trejo 03/27/2024 9:18:46 AM MUSIC SOUND LIGHT TECHNICIAN Sandy Nunez MD CV STRESS PROCEDURES Final Result from Last 3 Months Insurance COMMERCIAL GENERIC Member Subscriber Plan / Payer (Ef fective 2019-Present) Name:Pardeep Lilly Relation to Subscriber:Self Name:Pardeep Lilly Payer ID:[id number] Group ID:[id number] Type:COMMERCIAL Address: [place] [address] COMMERCIAL GENERIC Member Subscriber Plan / Payer (Ef fective 2021-Present) Name:Pardeep Lilly Relation to Subscriber:Self Name:Pardeep Lilly Payer ID:[id number] Group ID:[id number] Type:COMMERCIAL Address: [place] [address] COMMERCIAL GENERIC Member Subscriber Plan / Payer (Ef fective 2021-) Name:Pardeep Lilly Relation to Subscriber:Self Name:Pardeep Lilly Payer ID:[id number] Group ID:[id number] Type:COMMERCIAL Address: [address] [place] [address] Care Teams Benefits Analyst Relationship Specialty Start Date End Date Eduard Zamudio MD [address] [facility] [place] [address] PCP - General 08/05/21
--- OUTSIDE RECORDS SUMMARY | 2024-06-20 17:17 | XMS_ITS | Data Portability ---
Author Organization [facility] AVHeena Kothari Address [address] [place] [address] Care Team Providers Care Beet Topper Name Role Phone EDUARD HOOD Primary Care Provider Assessment Encounter Date Assessment Date Assessment LastModified by Organization Details LastModified Time 11/16/2021 11/16/2021 Pt is stable--his ER report was reviewed in detail with him. [email or web address] Not available 11/19/2021 23:32:12 01/16/2023 01/16/2023 Pt is stable. [email or web address] Not available 01/18/2023 14:44:00 12/25/2023 12/25/2023 Pt is interested potentially in FLMA coverage when work leaves him exceptionally fatigued. Pt states that his insurance will be changing in a month or so. [email or web address] Not available 12/27/2023 12:54:05 Plan of Treatment Reminders Order Date Submit Date Provider Last Modified By Organization Details Last Modified Time Details Appointments None recorded. Lab urinalysi s complete, reflex culture 2022 023 JONG LABMARIAH, [facility] [address], [address], [place], [address], 3 08:21:31 lipid panel, serum 2022 023 JONG FERNANDEZ, [facility] [address], [address], [place], [address], 3 06:16:03 HbA1c (hemoglob in A1c), blood 2022 023 JONGMINDY KOCHINOCENTE, [address] [place], [place] [address]ot Rodriguez, [address], [place], [address], 3 08:21:31 vitamin D, 25-hydrox y, total, serum 2022 023 JONG FERNANDEZ, Zurdo Wellsvenjacquelyn [address], [address], [place], [address], 3 08:21:33 CBC w/ auto diff 2022 023 JONG FERNANDEZ, Alka[address] Priscillavenot [address], [address], [place], [address], 3 06:16:04 CMP, serum or plasma 2022 023 JONG FERNANDEZ, Zurdo Naiktristandebrajacquelyn [address]as, [address], [place], [address], 3 06:16:04 TSH, ultra-sen sitive, serum 2022 023 JONG KOCHINOCENTE, Zurdo Naiktristandebrajacquelyn [address]as, [address], [place], [address], 3 08:21:32 PSA, total, serum or plasma 2022 023 JONG KOCHINOCENTE, Zurdo Naiktristandebrajacquelyn [address], [address], [place], [address], 3 08:21:32 erythrocy te sedimenta tion rate by pepe n method 2021 022 JONG KOCHINOCENTE, Alka[address] Gumar[address], [address], [place], [address], 2 06:15:18 culture, urine 2021 022 JONG KOCHINOCENTE, Zurdo Naikmarina [address], [address], [place], [address], 06:15:19 HbA1c (hemoglob in A1c), blood 2021 JONG LABBELLERP, Zurdo [address]as, [address], [place], [address], 06:15:16 lipid panel, serum 2021 JONG [facility], Zurdo Frias, [address], [place], [address], 06:15:15 CMP, serum or plasma 2021 JONG [facility], Zurdo Frias, [address], [place], [address], 06:15:15 CBC w/ auto diff 2021 JONG [facility], Zurdo Frias, [address], [place], [address], 06:15:14 vitamin D, 25-hydrox y, total, serum 2021 JONG [facility], Zurdo Frias, [address], [place], [address], 06:15:17 unlisted lab - TSH w/reflex 2021 JONG [facility], Zurdo Frias, [address], [place], [address], 06:15:18 PSA, total, serum or plasma 2021 JONG [facility], Zurdo Frias, [address], [place], [address], 2 06:15:17 Referral gastroent erologist referral - for a screening colonosco py 2023 024 Jad Singh MD, [address] [facility] [address], [place], [address], 5 21:29:40 orthopedi c surgeon referral 2021 022 JONG Napoles MD, [address] [facility] , [address], [place], [address], 2 13:16:34 orthopedi c surgeon referral 2021 022 sher Napoles MD, [address] [facility] , [address], [place], [address], 2 13:45:52 gastroent erologist referral 2021 022 [email or web address] Singh MD, [address] [place] [address] [address], [place], [address], 2 13:47:22 Procedures None recorded. Surgeries None recorded. Imaging CT, chest, w/o contrast 2021 023 iam Cannon [facility] (Radiology), [address] [facility] [place], [address], 3 14:52:19 XR, chest, 2 view 2021 022 [facility] (Radiology), [address] [facility] [place], [address], 2 17:02:42 Medication Orders Zithromax Z-Winston 250 mg tablet 2023 025 [id number], [address], [place], [id number], 5 12:21:52 Vitamin D2 1,250 mcg (50,000 unit) capsule [address] [facility] A.K.A Ashutosh, [address] [place], [address], 4 17:31:07 meloxicam 15 mg tablet 2023 024 [facility] A.KSarah Ashutosh, [address] [place], [address], 4 12:54:10 budesonid e-formote rol HFA 160 mcg-4.5 mcg/actua tion aerosol inhaler [address] [facility] A.KJustenA Ashutosh, [address] [place], [address], 4 17:31:06 albuterol sulfate HFA 90 mcg/actua tion aerosol inhaler [address] [facility] A.K.A Ashutosh, [address] [place], [address], 4 17:31:06 doxycycli ne monohydra te 100 mg capsule 2022 024 [facility]22569, [address] [place] [address], [id number], 4 16:50:31 Vitamin D2 1,250 mcg (50,000 unit) capsule 2022 023 [facility] A.K.A Ashutosh, [address] [place], [address], 3 16:39:10 meloxicam 15 mg tablet 2022 023 [facility] A.K.A Pritimn, [address] [place], [address], 3 16:39:10 albuterol sulfate HFA 90 mcg/actua tion aerosol inhaler 2022 023 [facility] A.Sarah Vinaypankaj, [address] [employer] [place], [address], 3 16:39:08 budesonid e-formote rol HFA 160 mcg-4.5 mcg/actua tion aerosol inhaler 2022 023 [facility] A.KSarah Vinaypankaj, [address] [employer] [facility], [place], [address], 3 16:39:08 doxycycli ne monohydra te 100 mg tablet 2021 022 [facility] #44250, [address] [place], [id number], 3 16:10:18 meloxicam 15 mg tablet 2021 022 [facility] #95979, [address], [place], [place], [id number], 2 10:59:49 Medrol (Winston) 4 mg tablets in a dose pack 2021 022 [facility] #11680, [address] [place], [place], [id number], 2 17:00:34 Symbicort 160 mcg-4.5 mcg/actua tion HFA aerosol inhaler 2021 022 [facility] #65798, [address], [place], [place], [id number], 2 10:38:33 albuterol sulfate HFA 90 mcg/actua tion aerosol inhaler [address] [facility] #26354, [address] , [place], [place], [id number], 3 16:13:48 albuterol sulfate HFA 90 mcg/actua tion aerosol inhaler 2021 022 [email or web address] [facility] #24546, [address], [place], [place], [id number], 3 16:13:48 Patient TargetsNo targets recorded. Patient Instructions Encounter Date Encounter Id Patient Instructions Last Modified By Organization Details Last Modified Time 07/25/2021 [id number] When You Want to Lose Weight: Care Instructions [email or web address] Not available 07/25/2021 13:05:15 shortness of breath: care instructions [email or web address] Not available 07/25/2021 13:08:25 09/25/2021 [id number] A healthy lifestyle: care instructions Not available 09/25/2021 10:30:53 Quitting Tobacco : Care Instructions [email or web address] Not available 09/25/2021 10:30:53 shortness of breath: care instructions [email or web address] Not available 09/25/2021 10:38:27 11/16/2021 [id number] When You Want to Lose Weight: Care Instructions [email or web address] Not available 11/16/2021 17:30:46 A healthy lifestyle: care instructions [email or web address] Not available 11/16/2021 17:30:46 Quitting Tobacco : Care Instructions Not available 11/16/2021 17:38:14 Acute Sinusitis: Care Instructions [email or web address] Not available 11/16/2021 17:35:45 01/16/2023 [id number] painful urinatio n (dysuria): care instructions [email or web address] Not available 01/16/2023 16:40:22 When You Want to Lose Weight: Care Instructions [email or web address] Not available 01/16/2023 16:41:53 12/25/2023 [id number] Acute Sinusitis: Care Instructions [email or web address] Not available 12/25/2023 17:31:07 Reason for Referral Legal Administrative Secretary Referral for Screening for malignant neoplasm of colon Referring Physician: Eduard Hood [facility], Encounter Date: 07/25/2021 Orthopedic Surgeon Referral for Lateral epicondylitis of right humerus Referring Physician: Eduard Hood [facility], Encounter Date: 09/25/2021 Orthopedic Surgeon Referral for Injury of knee Referring Physician: Eduard Hood [facility], Encounter Date: 09/25/2021 Legal Administrative Secretary Referral for Screening for malignant neoplasm of colon for a screening colonoscopy Referring Physician: Eduard Hood [facility], Encounter Date: 12/25/2023 Results Created Date Observation Date Name Description Value Unit Range Abnormal Flag Note LastModifiedBy Organization Detail LastModifiedTime 07/26/19 22 07/26/2021 CBC WITH DIFFE RENTI AL/PL ATELE T WBC 10.8 x10e3 /uL 3.4-10 .8 Not Available [facility] ([facility]) [address] [place], [address], 07/27/2021 06:15:14 07/26/19 22 07/26/2021 CBC WITH DIFFE RENTI AL/PL ATELE T RBC 5.41 x10e6 /uL 4.14-5 .80 Not Available [facility] ([facility]) [address] [place], [address], 07/27/2021 06:15:14 07/26/19 22 07/26/2021 CBC WITH DIFFE RENTI AL/PL ATELE T hemoglobin 16.1 g/dL 13.0-1 7.7 Not Available [facility] ([facility]) [address] [place], [address], 07/27/2021 06:15:14 07/26/19 22 07/26/2021 CBC WITH DIFFE RENTI AL/PL ATELE T hematocrit 47.5 % 37.5-5 1.0 Not Available [facility] ([facility]) [address] [place], [address], 07/27/2021 06:15:14 07/26/19 22 07/26/2021 CBC WITH DIFFE RENTI AL/PL ATELE T MCV 88 fL 79-97 Not Available [facility] ([facility]) [address] [facility], [place], [address], 07/27/2021 06:15:14 07/26/19 22 07/26/2021 CBC WITH DIFFE RENTI AL/PL ATELE T MCH 29.8 pg 26.6-3 3.0 Not Available [facility] ([facility]) [address] [facility], [place], [address], 07/27/2021 06:15:14 07/26/19 22 07/26/2021 CBC WITH DIFFE RENTI AL/PL ATELE T MCHC 33.9 g/dL 31.5-3 5.7 Not Available [facility] ([facility]) [address] [facility], [place], [address], 07/27/2021 06:15:14 07/26/19 22 07/26/2021 CBC WITH DIFFE RENTI AL/PL ATELE T RDW 12.8 % 11.6-1 5.4 Not Available [facility] ([facility]) [address] [facility], [place], [address], 07/27/2021 06:15:14 07/26/19 22 07/26/2021 CBC WITH DIFFE RENTI AL/PL ATELE T platelets 409 x10e3 /uL 150-45 0 Not Available [facility] ([facility]) [address] [place], [address], 07/27/2021 06:15:14 07/26/19 22 07/26/2021 CBC WITH DIFFE RENTI AL/PL ATELE T neutrophils 57 % not estab. Not Available [facility] ([facility]) [address] [place], [address], 07/27/2021 06:15:14 07/26/19 22 07/26/2021 CBC WITH DIFFE RENTI AL/PL ATELE T lymphs 30 % not estab. Not Available [facility] ([facility]) [address] [place], [address], 07/27/2021 06:15:14 07/26/19 22 07/26/2021 CBC WITH DIFFE RENTI AL/PL ATELE T monocytes 10 % not estab. Not Available [facility] ([facility]) [address] [facility], [place], [address], 07/27/2021 06:15:14 07/26/19 22 07/26/2021 CBC WITH DIFFE RENTI AL/PL ATELE T eos 2 % not estab. Not Available [facility] ([facility]) [address] [facility], [place], [address], 07/27/2021 06:15:14 07/26/19 22 07/26/2021 CBC WITH DIFFE RENTI AL/PL ATELE T basos 1 % not estab. Not Available [facility] ([facility]) [address] [place], [address], 07/27/2021 06:15:14 07/26/19 22 07/26/2021 CBC WITH DIFFE RENTI AL/PL ATELE T immature cells TRANSPORTATION SALES CONSULTANT Not Available [facility] ([facility]) [address] [place], [address], 07/27/2021 06:15:14 07/26/19 22 07/26/2021 CBC WITH DIFFE RENTI AL/PL ATELE T neutrophils (absolute) 6.2 x10e3 /uL 1.4-7. 0 Not Available [facility] ([facility]) [address] [place], [address], 07/27/2021 06:15:14 07/26/19 22 07/26/2021 CBC WITH DIFFE RENTI AL/PL ATELE T lymphs (absolute) 3.2 x10e3 /uL 0.7-3. 1 above high normal Not Available [facility] ([facility]) [address] [facility], [place], [address], 07/27/2021 06:15:14 07/26/19 22 07/26/2021 CBC WITH DIFFE RENTI AL/PL ATELE T monocytes(ab solute) 1.1 x10e3 /uL 0.1-0. 9 above high normal Not Available [facility] ([facility]) [address] [facility], [place], [address], 07/27/2021 06:15:14 07/26/19 22 07/26/2021 CBC WITH DIFFE RENTI AL/PL ATELE T eos (absolute) 0.2 x10e3 /uL 0.0-0. 4 Not Available [facility] ([facility]) [address] [facility], [place], [address], 07/27/2021 06:15:14 07/26/19 22 07/26/2021 CBC WITH DIFFE RENTI AL/PL ATELE T baso (absolute) 0.1 x10e3 /uL 0.0-0. 2 Not Available [facility] ([facility]) [address] [facility], [place], [address], 07/27/2021 06:15:14 07/26/19 22 07/26/2021 CBC WITH DIFFE RENTI AL/PL ATELE T immature granulocytes 0 % not estab. Not Available [facility] ([facility]) [address] [facility], [place], [address], 07/27/2021 06:15:14 07/26/19 22 07/26/2021 CBC WITH DIFFE RENTI AL/PL ATELE T immature grans (abs) 0.0 x10e3 /uL 0.0-0. 1 Not Available [facility] ([facility]) [address] [facility], [place], [address], 07/27/2021 06:15:14 07/26/19 22 07/26/2021 CBC WITH DIFFE RENTI AL/PL ATELE T NRBC TRANSPORTATION SALES CONSULTANT Not Available [facility] ([facility]) [address] [facility] [place], [address], 07/27/2021 06:15:14 07/26/19 22 07/26/2021 CBC WITH DIFFE RENTI AL/PL ATELE T hematology comments: TRANSPORTATION SALES CONSULTANT Not Available [facility] ([facility]) [address] [facility], [place], [address], 07/27/2021 06:15:14 07/26/19 22 07/26/2021 COMP. METAB OLIC PANEL (14) glucose 72 mg/dL 65-99 Not Available [facility] ([facility]) [address] [facility], [place], [address], 07/27/2021 06:15:15 07/26/19 22 07/26/2021 COMP. METAB OLIC PANEL (14) BUN 11 mg/dL 6-24 Not Available [facility] ([facility]) [address] [facility] [place], [address], 07/27/2021 06:15:15 07/26/19 22 07/26/2021 COMP. METAB OLIC PANEL (14) creatinine 1.06 mg/dL 0.76-1 .27 Not Available [facility] ([facility]) [address] [facility], [place], [address], 07/27/2021 06:15:15 07/26/19 22 07/26/2021 COMP. METAB OLIC PANEL (14) eGFR 82 mL/mi n/1.7 3 >59 Not Available [facility] ([facility]) [address] [facility] [place], [address], 07/27/2021 06:15:15 07/26/19 22 07/26/2021 COMP. METAB OLIC PANEL (14) BUN/creatini ne ratio 10 9-20 Not Available [facility] ([facility]) [address] [place], [address], 07/27/2021 06:15:15 07/26/19 22 07/26/2021 COMP. METAB OLIC PANEL (14) sodium 140 mmol/ L 134-14 4 Not Available [facility] ([facility]) [address] [place], [address], 07/27/2021 06:15:15 07/26/19 22 07/26/2021 COMP. METAB OLIC PANEL (14) potassium 5.0 mmol/ L 3.5-5. 2 Not Available [facility] ([facility]) [address] [place], [address], 07/27/2021 06:15:15 07/26/19 22 07/26/2021 COMP. METAB OLIC PANEL (14) chloride 105 mmol/ L 96-106 Not Available [facility] ([facility]) [address] [place], [address], 07/27/2021 06:15:15 07/26/19 22 07/26/2021 COMP. METAB OLIC PANEL (14) carbon dioxide, total 20 mmol/ L 20-29 Not Available [facility] ([facility]) [address] [place], [address], 07/27/2021 06:15:15 07/26/19 22 07/26/2021 COMP. METAB OLIC PANEL (14) calcium 10.1 mg/dL 8.7-10 .2 Not Available [facility] ([facility]) [address] [place], [address], 07/27/2021 06:15:15 07/26/19 22 07/26/2021 COMP. METAB OLIC PANEL (14) protein, total 6.8 g/dL 6.0-8. 5 Not Available [facility] ([facility]) [address] [place], [address], 07/27/2021 06:15:15 07/26/19 22 07/26/2021 COMP. METAB OLIC PANEL (14) albumin 4.4 g/dL 3.8-4. 9 Not Available [facility] ([facility]) [address] [facility], [place], [address], 07/27/2021 06:15:15 07/26/19 22 07/26/2021 COMP. METAB OLIC PANEL (14) globulin, total 2.4 g/dL 1.5-4. 5 Not Available [facility] ([facility]) [address] [facility], [place], [address], 07/27/2021 06:15:15 07/26/19 22 07/26/2021 COMP. METAB OLIC PANEL (14) A/G ratio 1.8 1.2-2. 2 Not Available [facility] ([facility]) [address] [facility], [place], [address], 07/27/2021 06:15:15 07/26/19 22 07/26/2021 COMP. METAB OLIC PANEL (14) bilirubin, total 0.3 mg/dL 0.0-1. 2 Not Available [facility] ([facility]) [address] [facility], [place], [address], 07/27/2021 06:15:15 07/26/19 22 07/26/2021 COMP. METAB OLIC PANEL (14) alkaline phosphatase 69 IU/L 44-121 Not Available [facility]) [address] [facility], [place], [address], 07/27/2021 06:15:15 07/26/19 22 07/26/2021 COMP. METAB OLIC PANEL (14) AST (SGOT) 14 IU/L 0-40 Not Available [facility] ([facility]) [address] [facility], [place], [address], 07/27/2021 06:15:15 07/26/19 22 07/26/2021 COMP. METAB OLIC PANEL (14) ALT (SGPT) 19 IU/L 0-44 Not Available [facility] ([facility]) [address] [facility] [place], [address], 07/27/2021 06:15:15 07/26/19 22 07/26/2021 LIPID PANEL cholesterol, total 158 mg/dL 100-19 9 Not Available [facility] ([facility]) [address] [facility] [place], [address], 07/27/2021 06:15:15 07/26/19 22 07/26/2021 LIPID PANEL triglyceride s 125 mg/dL 0-149 Not Available [facility] ([facility]) [address] [place], [address], 07/27/2021 06:15:15 07/26/19 22 07/26/2021 LIPID PANEL HDL cholesterol 38 mg/dL >39 below low normal Not Available [facility] ([facility]) [address] [place], [address], 07/27/2021 06:15:15 07/26/19 22 07/26/2021 LIPID PANEL VLDL cholesterol vladimir 23 mg/dL 5-40 Not Available [facility] ([facility]) [address] [place], [address], 07/27/2021 06:15:15 07/26/19 22 07/26/2021 LIPID PANEL LDL chol calc (rust) 97 mg/dL 0-99 Not Available [facility] ([facility]) [address] [place], [address], 07/27/2021 06:15:15 07/26/19 22 07/26/2021 LIPID PANEL comment: TRANSPORTATION SALES CONSULTANT Not Available [facility] ([facility]) [address] [place], [address], 07/27/2021 06:15:15 07/26/19 22 07/26/2021 HEMOG LOBIN A1C hemoglobin A1C 5.6 % 4.8-5. 6 Predi abete s: 5.7 - 6.4 Diabe ray: >6.4 Glyce ruslan contr ol for adult s with diabe ray: <7.0 Not Available [facility] ([facility]) [address] [facility], [place], [address], 07/27/2021 06:15:16 07/26/19 22 07/26/2021 PROST ATE-S PECIF IC AG prostate specific Ag 0.2 NG/mL 0.0-4. 0 Christophe ECLIA metho dolog y. Accor ding to the Ameri can Urolo gical Assoc iatio n, Serum PSA shoul d decre ase and remai n at undet ectab le level s after radic al prost atect claudette. The AUA defin es bioch emica l recur rence as an initi al PSA value 0.2 ng/mL or great er follo wed by a subse quent confi rmato ry PSA value 0.2 ng/mL or great er. Value s obtai annemarie with diffe rent assay metho ds or kits canno t be used inter sebastian eably . Resul ts canno t be inter prete d as absol [place] evide nce of the prese nce or absen ce of magdaleno sterling se. Not Available [facility] ([facility]) [address] [facility], [place], [address], 07/27/2021 06:15:16 07/26/19 22 07/26/2021 VITAM IN D, 25-HY DROXY vitamin D, 25-hydroxy 18.9 NG/mL 30.0-1 00.0 below low normal Vitam in D defic iency has been defin ed by the Insti tute of Medic ine and an Endoc rine Socie ty pract ice guide line as a level of serum 25-OH vitam in D less than 20 ng/mL (1,2) . The Endoc rine Socie ty went on to furth er defin e vitam in D insuf ficie ncy as a level betwe en 21 and 29 ng/mL (2). 1. IOM (Inst itute of Medic ine). 2010. Dieta ry refer ence kaylee es for calci um and D. Unique meeks [place]: The [facility] . 2. Anika k MF, Binkl ey [place], Bisch off-F errar i APPIAH, et al. Evalu ation , treat ment, and preve ntion of vitam in D defic iency : an Endoc rine Socie ty clini vladimir pract ice guide line. JCEM. 2010; 96(7) :1911 -30. Not Available [facility] ([facility]) [address] [place], [address], 07/27/2021 06:15:17 07/26/19 22 07/26/2021 TSH W/REF SANTA TSH 1.150 uIU/m L 0.450- 4.500 Not Available [facility] ([facility]) [address] [place], [address], 07/27/2021 06:15:18 07/26/19 22 07/26/2021 SEDIM ENTAT ION RATE- WESTE RGREN sedimentatio n rate-westerg darci 16 mm/HR 0-30 Not Available [facility] ([facility]) [address] [place], [address], 07/27/2021 06:15:18 07/26/19 22 07/27/2021 URINE CULTU REVANESA NE urine culture, routine Final report Not Available [facility] ([facility]) [address] [place], [address], 07/27/2021 06:15:19 07/26/19 22 07/27/2021 URINE CULTU REVANESA result 1 No growth Not Available [facility] ([facility]) [address] [place], [address], 07/27/2021 06:15:19 01/17/20 23 01/16/2023 LIPID PANEL cholesterol, total 166 mg/dL 100-19 9 Not Available [facility] [address] [place], [address], 01/17/2023 06:16:03 01/17/2001/16/2023 LIPID PANEL triglyceride s 147 mg/dL 0-149 Not Available [facility] [address] [place] [address], [address], 01/17/2023 06:16:03 01/17/2001/16/2023 LIPID PANEL HDL cholesterol 41 mg/dL 40-999 Not Available [facility] [address] [place], [address], 01/17/2023 06:16:03 01/17/2001/16/2023 LIPID PANEL VLDL cholesterol vladimir 29 mg/dL 5-40 Not Available [facility] [address] [place] [address], [address], 01/17/2023 06:16:03 01/17/20 23 01/16/2023 LIPID PANEL LDL chol calc (nih) 117 mg/dL 0-99 above high normal Not Available [facility] [address] [place], [address], 01/17/2023 06:16:03 01/17/20 23 01/16/2023 COMP. METAB OLIC PANEL (14) glucose 98 mg/dL 70-99 Not Available [facility] [address] [place], [address], 01/17/2023 06:16:03 01/17/20 23 01/16/2023 COMP. METAB OLIC PANEL (14) BUN 9 mg/dL 6-24 Not Available [facility] [address] [place], [address], 01/17/2023 06:16:03 01/17/20 23 01/16/2023 COMP. METAB OLIC PANEL (14) creatinine 0.88 mg/dL 0.76-1 .27 Not Available [facility] [address] [place], [address], 01/17/2023 06:16:03 01/17/20 23 01/16/2023 COMP. METAB OLIC PANEL (14) eGFR 99 >=60 Units for eGFR value s are mL/mi n/1.7 3 The eGFR Calcu latio n has not been valid ated for patie nts under the age of 18. If test resul ts are displ ayed for a patie nt under the age of 18, disre modesta that value . Not Available [facility] [address] [place] [address], [address], 01/17/2023 06:16:03 01/17/20 23 01/16/2023 COMP. METAB OLIC PANEL (14) BUN/creatini ne ratio 10 9-20 Not Available [facility] [address] [place] [address], [address], 01/17/2023 06:16:03 01/17/20 23 01/16/2023 COMP. METAB OLIC PANEL (14) sodium 141 mmol/ L 134-14 4 Not Available [facility] [address] [place] [address], [address], 01/17/2023 06:16:03 01/17/20 23 01/16/2023 COMP. METAB OLIC PANEL (14) potassium 4.4 mmol/ L 3.5-5. 2 Not Available [facility] [address] [place] [address], [address], 01/17/2023 06:16:03 01/17/20 23 01/16/2023 COMP. METAB OLIC PANEL (14) chloride 105 mmol/ L 96-106 Not Available [facility] [address] [place], [address], 01/17/2023 06:16:03 01/17/20 23 01/16/2023 COMP. METAB OLIC PANEL (14) carbon dioxide, total 23 mmol/ L 20-29 Not Available [facility] [facility] [address] [place], [address], 01/17/2023 06:16:03 01/17/2001/16/2023 COMP. METAB OLIC PANEL (14) calcium 9.8 mg/dL 8.7-10 .2 Not Available [facility] [address] [place], [address], 01/17/2023 06:16:03 01/17/20 23 01/16/2023 COMP. METAB OLIC PANEL (14) protein, total 7.1 g/dL 6.0-8. 5 Not Available [facility] [address] [place], [address], 01/17/2023 06:16:03 01/17/20 23 01/16/2023 COMP. METAB OLIC PANEL (14) albumin 4.6 g/dL 3.8-4. 9 Not Available [facility] [address] [place], [address], 01/17/2023 06:16:03 01/17/20 23 01/16/2023 COMP. METAB OLIC PANEL (14) globulin, total 2.5 g/dL 1.5-4. 5 Not Available [facility] [address] [place], [address], 01/17/2023 06:16:03 01/17/20 23 01/16/2023 COMP. METAB OLIC PANEL (14) A/G ratio 2.0 1.2-2. 2 Not Available [facility] [address] [place], [address], 01/17/2023 06:16:03 01/17/20 23 01/16/2023 COMP. METAB OLIC PANEL (14) bilirubin, total 0.4 mg/dL 0.0-1. 2 Not Available [facility] [address] [place], [address], 01/17/2023 06:16:03 01/17/20 23 01/16/2023 COMP. METAB OLIC PANEL (14) alkaline phosphatase 77 IU/L 44-121 Not Available [facility] Department [address] [place], [address], 01/17/2023 06:16:03 01/17/2001/16/2023 COMP. METAB OLIC PANEL (14) AST (SGOT) 19 IU/L 0-40 Not Available [facility] Department [address] [place], [address], 01/17/2023 06:16:03 01/17/2001/16/2023 COMP. METAB OLIC PANEL (14) ALT (SGPT) 22 IU/L 0-44 Not Available [facility] [address] [place], [address], 01/17/2023 06:16:03 01/17/2001/16/2023 CBC WITH DIFFE RENTI AL/PL ATELE T WBC 12.5 x10e3 /uL 3.4-10 .8 above high normal Not Available [facility] [address] [place], [address], 01/17/2023 06:16:04 01/17/2001/16/2023 CBC WITH DIFFE RENTI AL/PL ATELE T RBC 5.43 x10e6 /uL 4.14-5 .80 Not Available [facility] [address] [place], [address], 01/17/2023 06:16:04 01/17/2001/16/2023 CBC WITH DIFFE RENTI AL/PL ATELE T hemoglobin 16.2 g/dL 13.0-1 7.7 Not Available [facility] [address] [place], [address], 01/17/2023 06:16:04 01/17/2001/16/2023 CBC WITH DIFFE RENTI AL/PL ATELE T hematocrit 49.6 % 37.5-5 1.0 Not Available [facility] [address] [place], [address], 01/17/2023 06:16:04 01/17/2001/16/2023 CBC WITH DIFFE RENTI AL/PL ATELE T MCV 91 fL 79-97 Not Available [facility] [address] [place], [address], 01/17/2023 06:16:04 01/17/2001/16/2023 CBC WITH DIFFE RENTI AL/PL ATELE T MCH 29.8 pg 26.6-3 3.0 Not Available [facility] [address] [place], [address], 01/17/2023 06:16:04 01/17/2001/16/2023 CBC WITH DIFFE RENTI AL/PL ATELE T MCHC 32.7 g/dL 31.5-3 5.7 Not Available [facility] [address] [place], [address], 01/17/2023 06:16:04 01/17/2001/16/2023 CBC WITH DIFFE RENTI AL/PL ATELE T RDW 12.5 % 11.5-1 4.5 Not Available [facility] [address] [place], [address], 01/17/2023 06:16:04 01/17/2001/16/2023 CBC WITH DIFFE RENTI AL/PL ATELE T platelets 444 x10e3 /uL 150-45 0 Not Available [facility] [address] [place], [address], 01/17/2023 06:16:04 01/17/2001/16/2023 CBC WITH DIFFE RENTI AL/PL ATELE T neutrophils 63 % notest b. Not Available [facility] [address] [place], [address], 01/17/2023 06:16:04 01/17/2001/16/2023 CBC WITH DIFFE RENTI AL/PL ATELE T lymphs 26 % notest b. Not Available [facility] [address] [place], [address], 01/17/2023 06:16:04 01/17/2001/16/2023 CBC WITH DIFFE RENTI AL/PL ATELE T monocytes 9 % notest b. Not Available [facility] [address] [place], [address], 01/17/2023 06:16:04 01/17/2001/16/2023 CBC WITH DIFFE RENTI AL/PL ATELE T eos 2 % notest b. Not Available [facility] [address] [place], [address], 01/17/2023 06:16:04 01/17/2001/16/2023 CBC WITH DIFFE RENTI AL/PL ATELE T basos 1 % notest b. Not Available [facility] [address] [place], [address], 01/17/2023 06:16:04 01/17/2001/16/2023 CBC WITH DIFFE RENTI AL/PL ATELE T neutrophils (absolute) 7.8 x10e3 /uL 1.4-7. 0 above high normal Not Available [facility] [address] [place], [address], 01/17/2023 06:16:04 01/17/2001/16/2023 CBC WITH DIFFE RENTI AL/PL ATELE T lymphs (absolute) 3.2 x10e3 /uL 0.7-3. 1 above high normal Not Available [facility] [address] [place], [address], 01/17/2023 06:16:04 01/17/2001/16/2023 CBC WITH DIFFE RENTI AL/PL ATELE T monocytes(ab solute) 1.2 x10e3 /uL 0.1-0. 9 above high normal Not Available [facility] [address] [place], [address], 01/17/2023 06:16:04 01/17/2001/16/2023 CBC WITH DIFFE RENTI AL/PL ATELE T eos (absolute) 0.2 x10e3 /uL 0.0-0. 4 Not Available [facility] [address] [place], [address], 01/17/2023 06:16:04 01/17/2001/16/2023 CBC WITH DIFFE RENTI AL/PL ATELE T baso (absolute) 0.1 x10e3 /uL 0.0-0. 2 Not Available [facility] [address] [place], [address], 01/17/2023 06:16:04 01/17/2001/16/2023 CBC WITH DIFFE RENTI AL/PL ATELE T immature granulocytes 0.3 % notest b. Not Available [facility] [address] [place], [address], 01/17/2023 06:16:04 01/17/20 23 01/16/2023 CBC WITH DIFFE RENTI AL/PL ATELE T immature grans (abs) 0.0 x10e3 /uL 0.0-0. 1 Not Available [facility] [address] [place], [address], 01/17/2023 06:16:04 01/17/2001/16/2023 CBC WITH DIFFE RENTI AL/PL ATELE T NRBC 0 % 0-0 Not Available [facility] [address] [place], [address], 01/17/2023 06:16:04 01/17/2001/17/2023 UA/M W/RFL X CULTU RE, ROUTI NE specific gravity 1.024 1.005- 1.030 Not Available [facility] ([facility]) [address] [facility], [place], [address], 01/17/2023 08:21:31 01/17/2001/17/2023 UA/M W/RFL X CULTU RE, ROUTI NE pH 7.0 5.0-7. 5 Not Available [facility] ([facility]) [address] [facility], [place], [address], 01/17/2023 08:21:31 01/17/2001/17/2023 UA/M W/RFL X CULTU RE, ROUTI NE urine-color Yellow yellow Not Available [facility] ([facility]) [address] [facility], [place], [address], 01/17/2023 08:21:31 01/17/2001/17/2023 UA/M W/RFL X CULTU RE, ROUTI NE appearance Clear clear Not Available [facility] ([facility]) [address] [facility], [place], [address], 01/17/2023 08:21:31 01/17/20 23 01/17/2023 UA/M W/RFL X CULTU RE, ROUTI NE WBC esterase Negati ve negati ve Not Available [facility] ([facility]) [address] [facility], [place], [address], 01/17/2023 08:21:31 01/17/2001/17/2023 UA/M W/RFL X CULTU RE, ROUTI NE protein Negati ve negati ve/tra ce Not Available [facility] ([facility]) [address] [place], [address], 01/17/2023 08:21:31 01/17/2001/17/2023 UA/M W/RFL X CULTU RE, ROUTI NE glucose Negati ve negati ve Not Available [facility] ([facility]) [address] [place], [address], 01/17/2023 08:21:31 01/17/2001/17/2023 UA/M W/RFL X CULTU RE, ROUTI NE ketones Negati ve negati ve Not Available [facility] ([facility]) [address] [place], [address], 01/17/2023 08:21:31 01/17/2001/17/2023 UA/M W/RFL X CULTU RE, ROUTI NE occult blood Negati ve negati ve Not Available [facility] ([facility]) [address] [place], [address], 01/17/2023 08:21:31 01/17/2001/17/2023 UA/M W/RFL X CULTU RE, ROUTI NE bilirubin Negati ve negati ve Not Available [facility] ([facility]) [address] [place], [address], 01/17/2023 08:21:31 01/17/2001/17/2023 UA/M W/RFL X CULTU RE, ROUTI NE urobilinogen ,semi-qn 1.0 mg/dL 0.2-1. 0 Not Available [facility] ([facility]) [address] [place], [address], 01/17/2023 08:21:31 01/17/2001/17/2023 UA/M W/RFL X CULTU RE, ROUTI NE nitrite, urine Negati ve negati ve Not Available [facility] ([facility]) [address] [place], [address], 01/17/2023 08:21:31 01/17/20 23 01/17/2023 UA/M W/RFL X CULTU RE, ROUTI NE microscopic examination Commen t Micro scopi c follo ws if indic ated. Not Available [facility] ([facility]) [address] [facility], [place], [address], 01/17/2023 08:21:31 01/17/20 23 01/17/2023 UA/M W/RFL X CULTU RE, ROUTI NE microscopic examination See below: Micro scopi c was indic ated and was perfo rmed. Not Available [facility] ([facility]) [address] [facility], [place], [address], 01/17/2023 08:21:31 01/17/2001/17/2023 UA/M W/RFL X CULTU RE, VANESA NE urinalysis reflex Commen t This speci men will not refle x to a Urine Cultu re. Not Available [facility] ([facility]) [address] [facility], [place], [address], 01/17/2023 08:21:31 01/17/2001/17/2023 HEMOG LOBIN A1C hemoglobin A1C 5.6 % 4.8-5. 6 Predi abete s: 5.7 - 6.4 Diabe ray: >6.4 Glyce ruslan contr ol for adult s with diabe ray: <7.0 Not Available [facility] ([facility]) [address] [facility], [place], [address], 01/17/2023 08:21:31 01/17/2001/17/2023 TSH TSH 1.730 uIU/m L 0.450- 4.500 Not Available [facility] ([facility]) [address] [facility], [place], [address], 01/17/2023 08:21:32 01/17/2001/17/2023 PROST ATE-S PECIF IC AG prostate specific Ag 0.2 NG/mL 0.0-4. 0 Christophe ECLIA metho dolog y. Accor ding to the Ameri can Urolo gical Assoc iatio n, Serum PSA shoul d decre ase and remai n at undet ectab le level s after radic al prost atect claudette. The AUA defin es bioch emica l recur rence as an initi al PSA value 0.2 ng/mL or great er follo wed by a subse quent confi rmato ry PSA value 0.2 ng/mL or great er. Value s obtai annemarie with diffe rent assay metho ds or kits canno t be used inter sebastian eably . Resul ts canno t be inter prete d as absol [place] evide nce of the prese nce or absen ce of [facility] disea se. Not Available [facility] ([facility]) [address] [facility], [place], [address], 01/17/2023 08:21:32 01/17/20 23 01/17/2023 VITAM IN D, 25-HY DROXY vitamin D, 25-hydroxy 37.5 NG/mL 30.0-1 00.0 Vitam in D defic iency has been defin ed by the Insti tute of Medic ine and an Endoc rine Socie ty pract ice guide line as a level of serum 25-OH vitam in D less than 20 ng/mL (1,2) . The Endoc rine Socie ty went on to furth er defin e vitam in D insuf ficie ncy as a level betwe en 21 and 29 ng/mL (2). 1. IOM (Inst itute of Medic ine). 2009. Dieta ry refer ence intak es for calci um and D. Unique meeks [place]: The Natio nal [facility] Press . 2. Anika diggs MF, Eloy booker [place], Bismanolo off-F errar i APPIAH, et al. Evalu ation , treat ment, and preve ntion of vitam in D defic iency : an Endoc rine Socie ty clini vladimir pract ice guide line. JCEM. 2010; 96(7) :1911 -30. Not Available [facility] ([facility]) [address] [facility], [place], [address], 01/17/2023 08:21:33 01/17/20 23 01/17/2023 MICRO SCOPI C EXAMI NATIO N WBC None seen /hpf 0-5 Not Available [facility] ([facility]) [address] [facility], [place], [address], 01/17/2023 08:21:30 01/17/20 23 01/17/2023 MICRO SCOPI C EXAMI NATIO N RBC 0-2 /hpf 0-2 Not Available [facility] ([facility]) [address] [facility], [place], [address], 01/17/2023 08:21:30 01/17/2001/17/2023 MICRO SCOPI C EXAMI NATIO N epithelial cells (non renal) None seen /hpf 0-10 Not Available [facility] ([facility]) [address] [facility], [place], [address], 01/17/2023 08:21:30 01/17/2001/17/2023 MICRO SCOPI C EXAMI NATIO N casts None seen /lpf nonese en Not Available [facility] ([facility]) [address] [facility], [place], [address], 01/17/2023 08:21:30 01/17/20 23 01/17/2023 MICRO SCOPI C EXAMI NATIO N bacteria None seen nonese en/few Not Available [facility] ([facility]) [address] [facility], [place], [address], 01/17/2023 08:21:30 08/06/19 22 08/05/2021 XR, chest , 2 view No observ ation record ed. [email or web address] [facility] [address] [facility] [address], [place], [address], 08/08/2021 12:04:58 12/21/19 22 12/14/2021 PFT, compl ete No observ ation record ed. [email or web address], [place], [address], 12/22/2021 08:22:04 Result Notes None recorded. Problems No Known Problems Procedures Surgical History Date Name Laterality Status Provider Name and Address Organization Details Recorded Time Appendectomy completed DALI Brush [facility] 07/25/2021 12:11:26 procedure on ankle completed DALI Brush [place] - [facility] 07/25/2021 12:11:32 Imaging Results Imaging Date Name Status LastModified by Organiz ation Details LastModified Time 08/05/2021 XR, chest, 2 view completed [email or web address] [address], [place], [address], 08/08/2021 12:04:58 12/14/2021 PFT, complete completed [email or web address] [facility] [address], [place], [address], 12/22/2021 08:22:04 Procedure Notes None recorded. Medical Equipment None Reported. Allergies Allergen ID Allergen Name Allergen Category Reaction Reaction Severity Criticality Documentation Date Start Date Code Code System Note Provider Name and Address Organization Details Recorded Time 989475 iodine medicatio n Not available Not available Not available 07/25/2021 5933 RxNorm Not Available Not Available Not Available 696943 shellfish derived food,medi cation swelling Not available Not available 07/25/2021 45775 UNK Not Available Not Available Not Available 927152 latex environme nt,medica tion itching Not available Not available 07/25/2021 41317 91 RxNorm Not Available Not Available Not Available 314514 nickel environme nt rash moderate unabletoasse ss 09/25/2021 41233 29 RxNorm Not Available Not Available Not Available Medications Name Sig Start Date Stop Date Status Note LastModified by Organization Details LastModified Time Prescriptio n - Prior Authorizati on Request 01/16 completed Not Available Not Available Not Available prednisone 10 mg tablet 07/25 completed Not Available Not Available Not Available azithromyci n 250 mg tablet TAKE 2 TABLETS (500 MG) BY ORAL ROUTE ONCE DAILY FOR 1 DAY THEN 1 TABLET (250 MG) BY ORAL ROUTE ONCE DAILY FOR 4 DAYS 05/27 completed Not Available Not Available Not Available meloxicam 15 mg tablet TAKE 1 TABLET BY MOUTH EVERY DAY WITH A MEAL active Not Available Not Available No t Available doxycycline monohydrate 100 mg tablet Take 1 tablet twice a day by oral route for 10 days. 01/16 completed Not Available Not Available Not Available ofloxacin 0.3 % ear drops INSTILL 10 DROPS IN THE RIGHT EAR DAILY FOR 7 DAYS 12/24 completed Not Available Not Available Not Available meclizine 25 mg tablet TAKE 2 TABLETS BY MOUTH 3 TIMES A DAY NEEDED FOR DIZZINESS 12/24 completed Not Available Not Available Not Available doxycycline monohydrate 100 mg capsule TAKE 1 CAPSULE BY MOUTH TWICE DAILY FOR 14 DAYS 12/24 completed Not Available Not Available Not Available methylpredn isolone 4 mg tablets in a dose pack FOLLOW PACKAGE DIRECTION S 11/16 completed Not Available Not Available Not Available albuterol sulfate HFA 90 mcg/actuati on aerosol inhaler INHALE 1 TO 2 PUFFS BY MOUTH EVERY 4 HOURS NEEDED FOR SHORTNESS OF BREATH active Not Available Not Available No t Available Vitamin D2 1,250 mcg (50,000 unit) capsule Take 1 capsule every week by oral route. 2023 active Not Available Not Available Not Avai lable amoxicillin 875 mg-potassiu m clavulanate 125 mg tablet TAKE 1 TABLET BY MOUTH EVERY 12 HOURS FOR 7 DAYS 12/24 completed Not Available Not Available Not Available Breyna 160 mcg-4.5 mcg/actuati on HFA aerosol inhaler INHALE 2 PUFFS BY MOUTH TWICE DAILY active Not Available Not Available No t Available Vitals Date Recorded Body weight Body height Body mass index (BMI) Respiratory rate Body temperature Oxygen saturation Oxygen saturation in Arterial blood by Pulse oximetry Heart rate Systolic blood pressure Diastolic blood pressure Provider Name and Address Organization Details Last Updated DateTime 2 300050. 36 g 182.88 cm 37.6 kg/m2 16 /min 96.9 [degF] 97 % 97 % 78 /min 140 mm[Hg] 90 mm[Hg] DALI Brush [place] - [facility] 2 12:16:30 Date Recorded Body height Body mass index (BMI) Body weight Oxygen saturation Oxygen saturation in Arterial blood by Pulse oximetry Heart rate Respiratory rate Body temperature Systolic blood pressure Diastolic blood pressure Provider Name and Address Organization Details Last Updated DateTime 2 182.88 cm 37.3 kg/m2 711458. 9 g 96 % 96 % 96 /min 16 /min 96.4 [degF] 126 mm[Hg] 88 mm[Hg] Mary Matute MA [facility] 2 09:42:52 Date Recorded Body height Body mass index (BMI) Body weight Oxygen saturation Oxygen saturation in Arterial blood by Pulse oximetry Heart rate Respiratory rate Body temperature Systolic blood pressure Diastolic blood pressure Provider Name and Address Organization Details Last Updated DateTime 2 182.88 cm 37.1 kg/m2 740582. 91 g 96 % 96 % 90 /min 16 /min 97.3 [degF] 120 mm[Hg] 84 mm[Hg] Mary Matute MA [facility] 2 16:58:48 Date Recorded Body height Body mass index (BMI) Body weight Oxygen saturation Oxygen saturation in Arterial blood by Pulse oximetry Heart rate Respiratory rate Body temperature Provider Name and Address Organization Details Last Updated DateTime 3 182.88 cm 35.5 kg/m2 569829. 41 g 99 % 99 % 82 /min 16 /min 97.3 [degF] Mary Matute MA [facility] 3 16:09:45 Date Recorded Body height Body mass index (BMI) Body weight Oxygen saturation Oxygen saturation in Arterial blood by Pulse oximetry Heart rate Respiratory rate Body temperature Systolic blood pressure Diastolic blood pressure Provider Name and Address Organization Details Last Updated DateTime 4 182.88 cm 35.2 kg/m2 716957. 17 g 94 % 94 % 89 /min 16 /min 97.5 [degF] 118 mm[Hg] 82 mm[Hg] Mary Matute MA [facility] 4 16:56:43 Social History Question Answer Notes LastModified by Organizat ion Details LastModified Time Tobacco Smoking Status Current Every Day Smoker DALI Brush, [facility] 07/25/2021 12:09:12 Do You Have An Advance Directive? No Information n ot available 07/25/2021 What Is Your Level Of Alcohol Consumption? None Information not available 07/25/2021 Are You Blind Or Do You Have Difficulty Seeing? No Information n ot available 07/25/2021 What Is Your Level Of Caffeine Consumption? Heavy Information not available 07/25/2021 In The 14 Days Before Symptom Onset, Have You Had Close Contact With A Laboratory-confirm ed COVID-19 While That Case Was Ill? No Information n ot available 07/25/2021 In The 14 Days Before Symptom Onset, Have You Had Close Contact With A Person Who Is Under Investigation For COVID-19 While That Person Was Ill? No Information not available 07/25/2021 Have You Been To An Area Known To Be High Risk For COVID-19? No Information not available 07/25/2021 Are You Currently Employed? Yes Information not available 07/25/2021 Are You Deaf Or Do You Have Serious Difficulty Hearing? No Information not available 07/25/2021 What Type Of Diet Are You Following? REGULAR Information n ot available 07/25/2021 Are There Any Guns Present In Your Home? No Information not available 07/25/2021 What Was The Date Of Your Most Recent Tobacco Screening? 12/25/2023 Information not available 12/25/2023 What Is Your Current Pack Years? 30ormorepack years Information not available 09/25/2021 What Is Your Relationship Status? Single Information not available 07/25/2021 Do You Use Your Seat Belt Or Car Seat Routinely? Yes Information not available 07/25/2021 Are You Sexually Active? No Information not available 07/25/2021 Do You Have Smoke And Carbon Monoxide Detectors In Your Home? Yes Information not available 07/25/2021 At What Age Did You Start Smoking Tobacco? 18 Information not available 09/25/2021 Are You Passively Exposed To Smoke? Yes Information no t available 07/25/2021 How Much Tobacco Do You Smoke? 0.5 PPD Information not available 07/25/2021 Do You Feel Stressed (tense, Restless, Nervous, Or Anxious, Or Unable To Sleep At Night)? [id number] Information not available 07/25/2021 Do You Use Any Illicit Or Recreational Drugs? No Information not available 07/25/2021 Do You Use Sunscreen Routinely? No Information not available 07/25/2021 Has Tobacco Cessation Counseling Been Provided? Yes Information not available 09/25/2021 On What Date Was Tobacco Cessation Counseling Provided? 12/25/2023 Information not available 12/25/2023 How Many Years Have You Smoked Tobacco? 38 Information not available 09/25/2021 Do You Or Have You Ever Used Any Other Forms Of Tobacco Or Nicotine? No Information not available 07/25/2021 Sex: Male Functional Status Question Answer Note LastModified by Organization D etails LastModified Time Are you able to care for yourself? Yes Information n ot available 07/25/2021 What is your exercise level? None Information not available 07/25/2021 Mental Status None recorded. Family History Relationship Description Onset Age of this Age Resolved Age Notes LastModified by Organization Details LastModified Time Mother Kidney disease [email or web address] Not available 2021 12:05:48 Mother Cardiac arrhythmia [email or web address] Not available 07/25 12:07:45 Maternal Grandmother Kidney disease [email or web address] Not available 2021 12:05:48 Unspecified Relation Vertigo runs in the family [email or web address] Not available 11/16/2021 17:01:35 Notes:lung problems- father No new reported 11/16/21, 01/16/23, 12/25/23 Medical History Condition Response Coronary Artery Disease N Other Y Atrial Fibrillation N High Blood Pressure N Kidney or Bladder Problems N Thyroid Problems N GI Problems N Depression N COPD N Blood Clots N Skin Problems N Eating Disorder N Anemia N Heart Attack ([place]) N Anxiety Disorder N Diabetes N Muscle, Joint, or Bone Problems N Seizures/Epilepsy N Acid Reflux (GERD) N Cancer N Stroke N Asthma N Allergies N ADHD N Substance Abuse N High Cholesterol N Hepatitis N Liver Disease N Schizophrenia N Headaches N Osteoporosis N Heart Failure N Immunizations Vaccine Type Date Status Note Provider Nam e and Address Organization Details Recorded Time Influenza, split virus, quadrivalent, PF 2 completed Eduard Hood MD Attn: Accounting[address] [place], [address], [facility] 11/19/2021 23:06:39 Influenza, split virus, quadrivalent, preservative 3 completed Eduard Hood MD Attn: Accounting[address] [place], [address], [facility] 01/18/2023 14:41:33 Influenza, split virus, trivalent, PF 4 completed Mary Matute MA [facility], [place] - [facility] 12/25/2023 17:33:45 Past Encounters Encounter ID Performer Location Encounter Start Date Encounter Closed Date Diagnosis/Indication Diagnosis SNOMED-CT Code Diagnosis ICD10 Code Diagnosis Note [id number] MD Ilia Johnson 14 IM [address] [facility] [address] [place] [id number] 07/25/2021 11:31:13 07/26/2021 12:51:41 Obesity 715375114 E66.9 Smoker 39989365 F17.200 0.5 ppd Screening for malignant neoplasm of prostate 890318860 Z12.5 Dyspnea 447439994 R06.00 Screening for malignant neoplasm of colon 734473673 Z12.11 colonoscop y done 2016--aman mmended to be recommende d in five years Arthritis 0699389 M19.90 History of prostatitis 1511698695 67965 Z87.561 [id number] MD Ilia Johnson 14 IM [address] [facility] [place] [address] 09/25/2021 09:32:56 09/29/2021 14:16:16 Smoker 23009313 F17.200 0.5 ppd Obesity 414072840 E66.9 History of SARS-CoV-2 29 46240175 23797402 Z86.09 February 2019 Dyspnea 127686585 R06.00 Trying to give up smoking 137161115 Z72.0 Lateral ep icondylitis of right humerus 1696667247 56413 M77.11 Injury of knee 045994660 S89.91XA [id number] MD Ilia Johnson 14 IM [address] [facility] [address] [place], [place] [address], [place] [address] 11/16/2021 16:39:07 11/20/2021 13:25:26 Influenza immunization advised 119175580 Z71.85 Multiple n odules of lung 960878730 R91.8 follow up in one year Vertigo [id number] R42 Obesity [id number] E66.9 Acute sinusitis 93456321 J01.90 Smoker 97981257 F17.200 0.5 ppd [id number] MD Ilia Johnson 14 IM [address] [facility] [address] [place], [place] [address], [place] [address] 01/16/2023 15:52:47 01/22/2023 13:33:20 Vitamin D deficiency 24420698 E55.9 Injury of knee [id number] S89.91XA Dyspnea 972308319 R06.00 Influenza immunization advised [id number] Z71.85 Screening for malignant neoplasm of prostate 711016432 Z12.5 Dysuria 59269003 R30.0 Obesity 267553727 E66.9 [id number] MD Ilia Johnson 14 IM [address] [facility] [address] [place] [id number] 12/25/2023 16:29:47 12/28/2023 11:00:23 Influenza immunization advised [id number] Z71.85 Dyspnea 178819522 R06.00 Acute sinusitis 03565180 J01.90 Vitamin D deficiency 347 21199 E55.9 Screening for malignant neoplasm of colon 232493288 Z12.11 colonoscop y done 2016--aman mmended to be recommende d in five years Injury of knee 385875502 S89.91XA Health Concerns Section Related Observation LastModified by Organization Detai ls LastModified Time None Recorded Concern Status LastModified by Organization Details LastModified Time None Recorded Advance Directives Directive N: Payers Encounter Date Sequence Insurance Name Policy Number Policy Arnold Covered Member ID Arnold Member ID Guarantor Name 07/25/2021 1 [id number] Malcolm Hanks [id number] Malcolm Hanks 09/25/2021 1 [employer] [id number] Malcolm Hanks [id number] Malcolm Hanks 11/16/2021 1 [employer] [id number] Malcolm Hanks [id number] Malcolm Hanks 01/16/2023 1 [employer] [id number] Malcolm Hanks [id number] Malcolm Hanks 12/25/2023 2 *SELF PAY* Elijah newbyade Hanks Notes Date Note Type Note Provider Name and Address Organization Details Recorded Time 07/25/2021 text/html First visit. Eduard Hood MD Attn: Accounting,[address] [facility], [place], [address], [facility] 07/25/2021 22:39:13 09/25/2021 text/html Per intake note. Eduard Hood MD Attn: Accounting,[address] [facility], [place], [address], [facility] 09/29/2021 08:07:27 11/16/2021 text/html As per intake note. Eduard Hood MD Attn: Accounting,[address] [place], [address], [facility] 11/19/2021 23:32:29 01/16/2023 text/html First visit in 14 months. Pt states that he is doing better with the inhalers. Eduard Hood MD Attn: Accounting,[address] [facility], [place], [address], [facility] 01/18/2023 14:45:41 12/25/2023 text/html Pt presents for an annual checkup. Eduard Hood MD Attn: Accounting,[address] [facility], [place], [address], [place] [facility] 12/27/2023 12:55:02
[2024-06-20 17:19] VITALS: BP 145/77; PULSE 83; RESP 16; TEMP 36.8; O2SAT 97
--- NOTE | 2024-06-20 17:42 | ED.GENADULT ---
HPI - General Adult General Chief complaint: Ear Stated complaint: Right Ear Pain Source: patient Mode of arrival: ambulatory Limitations: no limitations History of Present Illness HPI narrative: Patient presents for evaluation of right-sided ear pain. Symptom onset approximately 3 days ago. He has a history of recurrent ear infections. He has some muffled hearing on the right. He denies any fever, chills, cough, sore throat, drainage from the ear. He does smoke approximately 1 ppd. He wears earphones frequently and is wondering whether that may be contributory. Related Data Home Medications ?Medication ?Instructions ?Recorded ?Confirmed ?Last Taken ?Type budesonide-formoterol HFA 160 inhalation 06/20/24 Unknown History mcg-4.5 mcg/actuation aerosol inhaler (Breyna) diltiazem HCl 180 mg mg PO 06/20/24 Unknown History capsule,extended release 24 hr, controlled (DILT-XR) Allergies Allergy/AdvReac Type Severity Reaction Status Date / Time No Known Allergies Allergy Verified 06/20/24 17:25 Review of Systems Review of Systems: CONSTITUTIONAL: Denies fever, chills, or sweats. EYES: Denies visual changes, redness, or discharge. ENT: Reports right-sided ear pain with muffled hearing. Denies rhinorrhea, congestion, sore throat CARDIOVASCULAR: Denies chest pain, palpitations, or edema. RESPIRATORY: Denies cough or dyspnea. GASTROINTESTINAL: Denies abdominal pain, nausea, vomiting, or diarrhea. GENITOURINARY: Denies dysuria or hematuria. SKIN: Denies rash or itching. MUSCULOSKELETAL: Denies back pain, joint pain, or myalgia. NEUROLOGIC: Denies headache, numbness, dizziness, or weakness. PSYCHIATRIC: Denies anxiety or depression. [facility] Past Medical History Medical History History of recurrent ear infection Surgical History Surgical History History of appendectomy Family History Family History Mother Family history non-contributory Social History Social History (Reviewed 06/20/24 @ 17:47 by LUNA Banuelos, BCBeth Smoking packs per day: 1 Smoking cigarettes per day: 20.0 Smoking status: Current every day smoker Tobacco type: cigarettes Gender identity (if verbalized by the patient): Male Spiritual care concerns: No Exam Narrative: GENERAL: Well-appearing, well-nourished, and in no acute distress. HEAD: Normocephalic, atraumatic. EYES: PERRLA and EOMI. ENT: Nares clear, no rhinorrhea or epistaxis. Mucous membranes moist. Oropharynx without tonsillar hypertrophy exudate or other lesions. There is white exudate in the right ear canal which is erythematous. The right tympanic membrane is erythematous with scarring present. It is unclear whether there is a TM perforation NECK: Supple. No adenopathy or masses. No carotid bruits or JVD CHEST: Clear to auscultation. No respiratory distress. No wheezes rales or rhonchi HEART: Regular rate and rhythm. No murmur heard. Normal peripheral pulses. ABDOMEN: Soft, nontender, nondistended, normal active bowel sounds. EXTREMITIES: Normal range of motion. No edema. SKIN: Warm, dry, no rash. NEURO: No focal deficits. Alert and oriented x3. PSYCH: Normal mood and affect. Course Course Emergency Course: This is a 58 year male who presented for evaluation right-sided ear pain. He has evidence of both otitis media and otitis externa on exam. Will discharge with Augmentin and ofloxacin. Advised on smoking cessation. Follow up with primary provider. Go to the ER for worsening symptoms. Patient in agreement with plan of care. Level of Care: Express Care Visit Vital Signs Vital signs: Vital Signs Temperature 36.8 C 06/20/24 17:19 Pulse Rate 83 06/20/24 17:19 Respiratory Rate 16 06/20/24 17:19 Blood Pressure 145/77 H 06/20/24 17:19 Pulse Oximetry 97 06/20/24 17:19 Oxygen Delivery Room Air 06/20/24 17:19 Temperature 36.8 C 06/20/24 17:19 Pulse Rate 83 06/20/24 17:19 Respiratory Rate 16 06/20/24 17:19 Blood Pressure 145/77 H 06/20/24 17:19 Pulse Oximetry 97 06/20/24 17:19 Oxygen Delivery Room Air 06/20/24 17:19 Medical Decision Making Vital Signs Vital Signs: Vital Signs Temperature 36.8 C 06/20/24 17:19 Pulse Rate 83 06/20/24 17:19 Respiratory Rate 16 06/20/24 17:19 Blood Pressure 145/77 H 06/20/24 17:19 Pulse Oximetry 97 06/20/24 17:19 Oxygen Delivery Room Air 06/20/24 17:19 Temperature 36.8 C 06/20/24 17:19 Pulse Rate 83 06/20/24 17:19 Respiratory Rate 16 06/20/24 17:19 Blood Pressure 145/77 H 06/20/24 17:19 Pulse Oximetry 97 06/20/24 17:19 Oxygen Delivery Room Air 06/20/24 17:19 Discharge Plan Discharge Clinical Impression: Otitis media, Otitis externa Patient Disposition: Home Condition: Stable Instructions: Antibiotic Form, Swimmer's Ear (AC), Ear Infection (ED) Patient Language: Croatian Prescriptions: New amoxicillin-pot clavulanate 875-125 mg tablet 1 tablet PO Q12H Qty: 20 0RF ofloxacin 0.3 % drops 10 drp RIGHT EAR DAILY 7 Days Qty: 10 0RF No Action amoxicillin-pot clavulanate 875-125 mg tablet 1 tablet PO Q12H 7 Days Qty: 14 0RF ciprofloxacin HCl 0.2 % dropperette 5 drp RIGHT EAR Q12H Qty: 14 0RF diltiazem HCl [DILT-XR] 180 mg capsule,ext.rel 24h degradable PO budesonide-formoterol [Breyna] 160-4.5 mcg/actuation HFA aerosol inhaler INHALATION Follow-up/Referrals: Robb,Eduard Hansen MD [Primary Care Provider] - Time of Disposition: 17:31
== END 2024-06-20 17:35 | disposition home or self-care (01) ==
PROVIDERS: Emergency Provider Nurse Practitioner; PCP Family Medicine
DX: H66.91 Otitis media, unspecified, right ear (principal); H60.91 Unspecified otitis externa, right ear; F17.210 Nicotine dependence, cigarettes, uncomplicated
CPT/HCPCS: 99213; G0463